=== PATIENT | male | born 1970 | race Hispanic/Latino ===

== ENCOUNTER 2023-05-19 16:59 | Inpatient (IN) | payer OTHER ==
[~2023-05-19] VITALS: Ht 172.7 cm; Wt 91.6 kg
[2023-05-19 17:57] LABS: BASOPHILS # (AUTO) 0.02 K/uL (0.00-0.20); BASOPHILS % (AUTO) 0.4 % (0.0-5.0); EOSINOPHILS # (AUTO) 0.07 K/uL (0.00-0.70); EOSINOPHILS % (AUTO) 1.2 % (0.0-8.0); HEMATOCRIT 43.5 % (42-54); IMMATURE GRANULOCYTE ABSOLUTE 0.01 K/uL (0-1); LYMPHOCYTES # (AUTO) 1.6 K/uL (1.0-4.8); LYMPHOCYTES % (AUTO) 28.4 % (21.0-51.0); MEAN CORPUSCULAR HEMOGLOBIN 30.7 pg (27.0-33.0); MEAN CORPUSCULAR HGB CONC 34.9 g/dL (32.0-36.0); MEAN CORPUSCULAR VOLUME 87.9 fL (79-99); MONOCYTES # (AUTO) 0.5 K/uL (0.1-1.0); MONOCYTES % (AUTO) 8.3 % (3.0-13.0); NEUTROPHILS # (AUTO) 3.5 K/uL (1.8-7.7); NEUTROPHILS % (AUTO) 61.5 % (40.0-77.0); PLATELET COUNT (AUTO) 68 K/uL (130-400); RED BLOOD CELL COUNT(AUTO) 4.95 MIL/uL (4.50-6.20); RED CELL DISTRIBUTION WIDTH 12.7 % (11.0-15.5); WHITE BLOOD COUNT (AUTO) 5.6 K/uL (4.8-10.8)
[2023-05-19 18:05] LABS: CREATININE 0.6 mg/dL (0.5-1.5); POTASSIUM 3.5 mmol/L (3.5-5.1)
[2023-05-19 18:15] LABS: ALBUMIN 3.5 g/dL (3.5-5.0); BILIRUBIN,TOTAL 0.7 mg/dL (0.2-1.0); TOTAL PROTEIN, SERUM 6.8 g/dL (6.0-8.3)
[2023-05-19] MEDS ORDERED: NITROGLYCERIN 1GM OINT 1 INCH/1GM TD ONE (21:30)
[2023-05-19] MEDS ORDERED: ENOXAPARIN SODIUM 100 MG/1 ML SQ ONE (21:30)
[2023-05-19] MEDS ORDERED: ACETAMINOPHEN 325 MG TAB ONE (23:51)
[2023-05-20] MEDS ORDERED: ACETAMINOPHEN 325 MG TAB PO ONE
[2023-05-20] MEDS ORDERED: ACETAMINOPHEN 325 MG TAB PO PRN ×2 (02:00)
[2023-05-20] MEDS: NITROGLYCERIN 1GM OINT 1 INCH/1GM TD SCH ×3 (02:00→18:00)
[2023-05-20] MEDS ORDERED: DEXTROSE 50%-WATER 50 ML DISP.SYRIN IV PRN (02:00)
[2023-05-20] MEDS ORDERED: KCL 20 MEQ ERTAB PO PRN (02:00)
[2023-05-20] MEDS ORDERED: POTASSIUM CHLORIDE 10% ELIXIR 20 MEQ/15 ML UDCUP PO PRN (02:00)
[2023-05-20] MEDS ORDERED: ONDANSETRON 4MG INJ IV PRN (02:00)
[2023-05-20] MEDS ORDERED: POTASSIUM CHLORIDE 20MEQ/100ML 100 ML IV PRN (02:00)
[2023-05-20] MEDS ORDERED: GLUCAGON 1MG KIT 1 MG ML IM PRN (02:00)
[2023-05-20] MEDS ORDERED: METO-391 PO (05:31)
[2023-05-20] MEDS ORDERED: METF-527 PO (05:31)
[2023-05-20] MEDS ORDERED: ATOR-2 PO (05:31)
[2023-05-20] MEDS ORDERED: LISI20TA24 PO (05:31)
[2023-05-20] MEDS: INSULIN HUMULIN R 100 UNIT/ML 3ML SQ SCH ×4 (07:30→21:00)
[2023-05-20 07:43] LABS: BASOPHILS # (AUTO) 0.02 K/uL (0.00-0.20); BASOPHILS % (AUTO) 0.5 % (0.0-5.0); EOSINOPHILS # (AUTO) 0.04 K/uL (0.00-0.70); EOSINOPHILS % (AUTO) 0.9 % (0.0-8.0); HEMATOCRIT 43.6 % (42-54); IMMATURE GRANULOCYTE ABSOLUTE 0.01 K/uL (0-1); LYMPHOCYTES # (AUTO) 1.2 K/uL (1.0-4.8); LYMPHOCYTES % (AUTO) 28.1 % (21.0-51.0); MEAN CORPUSCULAR HEMOGLOBIN 30.9 pg (27.0-33.0); MEAN CORPUSCULAR HGB CONC 34.4 g/dL (32.0-36.0); MEAN CORPUSCULAR VOLUME 89.7 fL (79-99); MONOCYTES # (AUTO) 0.4 K/uL (0.1-1.0); MONOCYTES % (AUTO) 7.9 % (3.0-13.0); NEUTROPHILS # (AUTO) 2.8 K/uL (1.8-7.7); NEUTROPHILS % (AUTO) 62.4 % (40.0-77.0); PLATELET COUNT (AUTO) 59 K/uL (130-400); RED BLOOD CELL COUNT(AUTO) 4.86 MIL/uL (4.50-6.20); RED CELL DISTRIBUTION WIDTH 12.7 % (11.0-15.5); WHITE BLOOD COUNT (AUTO) 4.4 K/uL (4.8-10.8)
[2023-05-20 08:16] LABS: HEMOGLOBIN A1C 6.1 % (4.0-6.0)
[2023-05-20 08:17] LABS: ALBUMIN 3.5 g/dL (3.5-5.0); BILIRUBIN,TOTAL 0.9 mg/dL (0.2-1.0); CREATININE 0.6 mg/dL (0.5-1.5); MAGNESIUM 1.6 mg/dL (1.80-2.40); POTASSIUM 4.6 mmol/L (3.5-5.1); THYROID STIMULATING HORMONE 0.86 uIU/mL (0.36-3.74); TOTAL PROTEIN, SERUM 6.7 g/dL (6.0-8.3)
[2023-05-20] MEDS: FAMOTIDINE 20MG TAB PO SCH ×2 (08:19→21:59)
[2023-05-20] MEDS: METOPROLOL SUCCINATE 50 MG TAB.SR.24H PO SCH ×2 (08:19→21:59)
[2023-05-20 10:00] VITALS: BP 111/68; PULSE 80; RESP 18; O2SAT 98
[2023-05-20 12:00] VITALS: BP 111/68; PULSE 80; RESP 18
[2023-05-20] MEDS: ASPIRIN 81MG CHEW TAB PO SCH (13:30)
[2023-05-20] MEDS: MAGNESIUM 2GM PREMIX 50ML 50 ML IV PRN ×2 (13:31→18:45)
[2023-05-20 16:00] VITALS: BP 133/76; PULSE 81; RESP 18
[2023-05-20] MEDS ORDERED: IOHEXOL-350 75 ML VIAL IV ONE (18:08)
[2023-05-20 19:45] VITALS: O2SAT 98
[2023-05-20 20:00] VITALS: BP 124/82; PULSE 81; RESP 18
[2023-05-20] MEDS: ATORVASTATIN 40 MG TABLET PO SCH (21:59)
[2023-05-21] VITALS: BP 156/86; PULSE 91; RESP 20
[2023-05-21] MEDS: NITROGLYCERIN 1GM OINT 1 INCH/1GM TD SCH ×3 (02:01→19:26)
[2023-05-21 04:00] VITALS: BP 131/75; PULSE 81; RESP 18
[2023-05-21] MEDS: INSULIN HUMULIN R 100 UNIT/ML 3ML SQ SCH ×4 (05:53→21:53)
[2023-05-21 06:08] LABS: BASOPHILS # (AUTO) 0.02 K/uL (0.00-0.20); BASOPHILS % (AUTO) 0.3 % (0.0-5.0); EOSINOPHILS # (AUTO) 0.06 K/uL (0.00-0.70); EOSINOPHILS % (AUTO) 0.9 % (0.0-8.0); HEMATOCRIT 43.8 % (42-54); IMMATURE GRANULOCYTE ABSOLUTE 0.01 K/uL (0-1); LYMPHOCYTES # (AUTO) 1.5 K/uL (1.0-4.8); LYMPHOCYTES % (AUTO) 23.5 % (21.0-51.0); MEAN CORPUSCULAR HEMOGLOBIN 30.9 pg (27.0-33.0); MEAN CORPUSCULAR VOLUME 90.9 fL (79-99); MONOCYTES # (AUTO) 0.6 K/uL (0.1-1.0); NEUTROPHILS # (AUTO) 4.3 K/uL (1.8-7.7); NEUTROPHILS % (AUTO) 66.1 % (40.0-77.0); PLATELET COUNT (AUTO) 74 K/uL (130-400); RED BLOOD CELL COUNT(AUTO) 4.82 MIL/uL (4.50-6.20); RED CELL DISTRIBUTION WIDTH 12.7 % (11.0-15.5); WHITE BLOOD COUNT (AUTO) 6.5 K/uL (4.8-10.8)
[2023-05-21 06:33] LABS: ALBUMIN 3.2 g/dL (3.5-5.0); BILIRUBIN,TOTAL 0.9 mg/dL (0.2-1.0); CREATININE 0.7 mg/dL (0.5-1.5); MAGNESIUM 1.8 mg/dL (1.80-2.40); TOTAL PROTEIN, SERUM 6.4 g/dL (6.0-8.3)
[2023-05-21 08:00] VITALS: BP 123/67; PULSE 74; RESP 18; O2SAT 98
[2023-05-21] MEDS ORDERED: ENOXAPARIN SODIUM 40 MG/0.4 ML SYRINGE SQ SCH (09:00)
[2023-05-21] MEDS: LISINOPRIL 20 MG TABLET PO SCH (09:44)
[2023-05-21] MEDS: FUROSEMIDE 20 MG TABLET PO SCH (09:45)
[2023-05-21] MEDS: FAMOTIDINE 20MG TAB PO SCH ×2 (09:45→21:48)
[2023-05-21] MEDS: METOPROLOL SUCCINATE 50 MG TAB.SR.24H PO SCH ×2 (09:45→21:48)
[2023-05-21] MEDS: MAGNESIUM 2GM PREMIX 50ML 50 ML IV PRN (09:47)
[2023-05-21 12:00] VITALS: BP 129/77; PULSE 81; RESP 20
[2023-05-21] MEDS: ASPIRIN 81MG CHEW TAB PO SCH (12:31)
[2023-05-21 16:00] VITALS: BP 123/75; PULSE 76; RESP 20
[2023-05-21 20:00] VITALS: BP 129/77; PULSE 89; RESP 20
[2023-05-21] MEDS: ATORVASTATIN 40 MG TABLET PO SCH (21:48)
[2023-05-22] VITALS: BP 141/79; PULSE 88; RESP 20
[2023-05-22 04:02] VITALS: BP 136/85; PULSE 90; RESP 18
[2023-05-22] MEDS: INSULIN HUMULIN R 100 UNIT/ML 3ML SQ SCH ×3 (05:39→16:20)
[2023-05-22 07:32] VITALS: BP 109/57; PULSE 66; RESP 18
[2023-05-22 08:00] VITALS: O2SAT 100
[2023-05-22] MEDS: FAMOTIDINE 20MG TAB PO SCH (09:37)
[2023-05-22] MEDS: METOPROLOL SUCCINATE 50 MG TAB.SR.24H PO SCH (09:37)
[2023-05-22] MEDS: LISINOPRIL 20 MG TABLET PO SCH (09:37)
[2023-05-22] MEDS: FUROSEMIDE 20 MG TABLET PO SCH (09:38)
[2023-05-22 12:00] VITALS: BP 131/70; PULSE 78; RESP 18
[2023-05-22] MEDS ORDERED: FURO20TA6 PO (12:17)
[2023-05-22] MEDS ORDERED: METO50TA9 PO (12:17)
[2023-05-22] MEDS ORDERED: ASPI-1005 PO (12:17)
[2023-05-22] MEDS: ASPIRIN 81MG CHEW TAB PO SCH (13:13)
[2023-05-22 16:00] VITALS: BP 122/75; PULSE 70; RESP 18
== END 2023-05-22 17:50 | disposition home or self-care (01) | DRG 303 ==
LOC: EDH 16:59 → EDHIP 17:00 → 3BH 05-20 09:00
PROVIDERS: ADMIT Internal Medicine; ATTEND Internal Medicine
DX: I25.110 Atherosclerotic heart disease of native coronary artery with unstable angina pectoris (principal); D69.6 Thrombocytopenia, unspecified; I50.9 Heart failure, unspecified; I11.0 Hypertensive heart disease with heart failure; E66.01 Morbid (severe) obesity due to excess calories; I25.5 Ischemic cardiomyopathy; K80.20 Calculus of gallbladder without cholecystitis without obstruction; E11.9 Type 2 diabetes mellitus without complications; E78.00 Pure hypercholesterolemia, unspecified; Z95.5 Presence of coronary angioplasty implant and graft; I25.2 Old myocardial infarction; Z86.711 Personal history of pulmonary embolism; Z68.30 Body mass index [BMI] 30.0-30.9, adult; Z79.84 Long term (current) use of oral hypoglycemic drugs
CPT/HCPCS: 36415; 71045; 71275; 80053; 80061; 82948; 83036; 83735; 84443; 84484; 85025; 93005; 93306; 93970; G0378; J1650; J1815; J3475; Q9967

== ENCOUNTER 2023-11-09 22:37 | Emergency (ER) | payer OTHER ==
[~2023-11-09 22:37] MED LIST: ASPI-1005 PO; ATOR-2 PO; FURO20TA6 PO; LISI20TA24 PO; METF-527 PO; METO50TA9 PO
[2023-11-09 23:34] LABS: BASOPHILS # (AUTO) 0.02 K/uL (0.00-0.20); BASOPHILS % (AUTO) 0.3 % (0.0-5.0); EOSINOPHILS # (AUTO) 0.07 K/uL (0.00-0.70); HEMATOCRIT 41.5 % (42-54); IMMATURE GRANULOCYTE ABSOLUTE 0.02 K/uL (0-1); LYMPHOCYTES # (AUTO) 1.9 K/uL (1.0-4.8); LYMPHOCYTES % (AUTO) 28.1 % (21.0-51.0); MEAN CORPUSCULAR HEMOGLOBIN 30.9 pg (27.0-33.0); MEAN CORPUSCULAR HGB CONC 34.5 g/dL (32.0-36.0); MEAN CORPUSCULAR VOLUME 89.6 fL (79-99); MONOCYTES # (AUTO) 0.6 K/uL (0.1-1.0); MONOCYTES % (AUTO) 8.8 % (3.0-13.0); NEUTROPHILS # (AUTO) 4.1 K/uL (1.8-7.7); NEUTROPHILS % (AUTO) 61.5 % (40.0-77.0); PLATELET COUNT (AUTO) 100 K/uL (130-400); RED BLOOD CELL COUNT(AUTO) 4.63 MIL/uL (4.50-6.20); RED CELL DISTRIBUTION WIDTH 13.8 % (11.0-15.5); WHITE BLOOD COUNT (AUTO) 6.7 K/uL (4.8-10.8)
[2023-11-09 23:44] LABS: CARBON DIOXIDE 29 mmol/L (21-32); CHLORIDE 108 mmol/L (101-111); CREATININE 0.7 mg/dL (0.5-1.3); GLOMERULAR FILTR. RATE CALC 110 mL/min (>90); GLUCOSE,RANDOM 115 mg/dL (70-105); POTASSIUM 3.3 mmol/L (3.5-5.1); SODIUM SERUM 146 mmol/L (136-145); UREA NITROGEN, BLOOD 16 mg/dL (7-18)
[2023-11-09 23:51] LABS: APPEARANCE,URINE CLEAR (CLEAR); BILIRUBIN,URINE NEGATIVE (NEGATIVE); COLOR,URINE YELLOW (YELLOW); GLUCOSE, URINE (UA) NEGATIVE (NEGATIVE); KETONES,URINE NEGATIVE (NEGATIVE); LEUKOCYTE ESTERASE ,URINE NEGATIVE Leu/uL (NEGATIVE); NITRATE,URINE NEGATIVE (NEGATIVE); OCCULT BLOOD,URINE NEGATIVE (NEGATIVE); PROTEIN,URINE 50 mg/dL (NEGATIVE); UROBILINOGEN,URINE 3 mg/dL (0.2-1.0)
[2023-11-09 23:51] LABS: ALANINE AMINOTRANSFERASE 34 U/L (12-78); ALBUMIN 3.9 g/dL (3.5-5.0); ALCOHOL, BLOOD < 3 mg/dL (0-10); ASPARTATE AMINOTRANSFERASE 18 U/L (10-37); BILIRUBIN,TOTAL 1.2 mg/dL (0.2-1.0); CREATINE KINASE, TOTAL 85 U/L (21-232); TOTAL PROTEIN, SERUM 7.1 g/dL (6.0-8.3)
[2023-11-09 23:55] LABS: ACETAMINOPHEN < 1 mcg/mL (10-29); SALICYLATE < 2.8 mg/dL (2.8-20.0)
[2023-11-09 23:59] LABS: ADD UA MICROSCOPIC YES
[2023-11-10 00:01] LABS: BACTERIA,URINE FEW /HPF (None Seen); MUCUS,URINE MANY LPF (None Seen); SQUAMOUS EPITHELIAL CELL,UR RARE /HPF (0-2)
[2023-11-10 01:12] LABS: AMPHET/METH SCREEN,URINE NEGATIVE (NEGATIVE); BARBITURATE SCREEN, URINE NEGATIVE (NEGATIVE); BENZODIAZEPINES SCREEN,URINE NEGATIVE (NEGATIVE); CANNABINOID SCREEN,URINE NEGATIVE (NEGATIVE); COCAINE SCREEN,URINE NEGATIVE (NEGATIVE); OPIATE SCREEN,URINE NEGATIVE (NEGATIVE); PHENCYCLIDINE SCREEN,URINE NEGATIVE (NEGATIVE)
[2023-11-10 04:18] VITALS: BP 139/80; PULSE 75; RESP 16; O2SAT 99
[2023-11-10] MEDS ORDERED: AMOX1TAB16 PO (12:37)
== END 2023-11-10 04:42 | disposition home or self-care (01) ==
LOC: EDH 22:37
DX: R45.851 Suicidal ideations (principal); I25.10 Atherosclerotic heart disease of native coronary artery without angina pectoris; E11.9 Type 2 diabetes mellitus without complications; E78.00 Pure hypercholesterolemia, unspecified; Z59.00 Homelessness unspecified; Z79.82 Long term (current) use of aspirin; Z79.899 Other long term (current) drug therapy; Z95.5 Presence of coronary angioplasty implant and graft
CPT/HCPCS: 99283; 82550; 80053; 80305; 85025; 36415; 81001; G0481

== ENCOUNTER 2023-11-10 09:13 | Emergency (ER) | payer OTHER ==
[~2023-11-10] VITALS: Ht 170.2 cm; Wt 81.6 kg
[2023-11-10] MEDS: AMOX/CLAV 875/125MG TAB PO ONE (10:42)
[2023-11-10] MEDS: IBUPROFEN 600 MG TABLET PO ONE (10:42)
[2023-11-10] MEDS: RABIES VACC, HUMAN DIPLOID/PF 2.5 UNIT ML IM SCH (10:43)
[2023-11-10] MEDS ORDERED: AMOX1TAB16 PO (12:37)
[2023-11-10 13:17] VITALS: BP 105/70; PULSE 82; RESP 17; O2SAT 99
== END 2023-11-10 13:18 | disposition home or self-care (01) ==
LOC: EDH 09:13
DX: S70.311A Abrasion, right thigh, initial encounter (principal); I11.0 Hypertensive heart disease with heart failure; I50.9 Heart failure, unspecified; E11.9 Type 2 diabetes mellitus without complications; Z79.82 Long term (current) use of aspirin; Z79.84 Long term (current) use of oral hypoglycemic drugs; Z79.899 Other long term (current) drug therapy; Z90.49 Acquired absence of other specified parts of digestive tract; Z98.890 Other specified postprocedural states; W54.0XXA Bitten by dog, initial encounter; Y93.01 Activity, walking, marching and hiking; Y92.89 Other specified places as the place of occurrence of the external cause; Y99.8 Other external cause status
CPT/HCPCS: 90471; 90675

== ENCOUNTER 2023-11-17 09:01 | Emergency (ER) | payer OTHER ==
[~2023-11-17] VITALS: Ht 170.2 cm; Wt 81.6 kg
[~2023-11-17 09:01] MED LIST changes: +AMOX1TAB16 PO
[2023-11-17 09:42] LABS: BASOPHILS # (AUTO) 0.02 K/uL (0.00-0.20); BASOPHILS % (AUTO) 0.4 % (0.0-5.0); EOSINOPHILS # (AUTO) 0.06 K/uL (0.00-0.70); EOSINOPHILS % (AUTO) 1.3 % (0.0-8.0); HEMATOCRIT 36.5 % (42-54); IMMATURE GRANULOCYTE ABSOLUTE 0.01 K/uL (0-1); LYMPHOCYTES # (AUTO) 1.1 K/uL (1.0-4.8); LYMPHOCYTES % (AUTO) 23.4 % (21.0-51.0); MEAN CORPUSCULAR HEMOGLOBIN 30.9 pg (27.0-33.0); MEAN CORPUSCULAR HGB CONC 34.2 g/dL (32.0-36.0); MEAN CORPUSCULAR VOLUME 90.1 fL (79-99); MONOCYTES # (AUTO) 0.4 K/uL (0.1-1.0); MONOCYTES % (AUTO) 8.5 % (3.0-13.0); NEUTROPHILS % (AUTO) 66.2 % (40.0-77.0); PLATELET COUNT (AUTO) 68 K/uL (130-400); RED BLOOD CELL COUNT(AUTO) 4.05 MIL/uL (4.50-6.20); RED CELL DISTRIBUTION WIDTH 13.5 % (11.0-15.5); WHITE BLOOD COUNT (AUTO) 4.5 K/uL (4.8-10.8)
[2023-11-17 09:58] LABS: CREATININE 0.6 mg/dL (0.5-1.3); POTASSIUM 3.5 mmol/L (3.5-5.1)
[2023-11-17 10:02] VITALS: BP 125/56; PULSE 61; RESP 20; O2SAT 99
[2023-11-17 10:02] LABS: AMPHET/METH SCREEN,URINE NEGATIVE (NEGATIVE); BARBITURATE SCREEN, URINE NEGATIVE (NEGATIVE); BENZODIAZEPINES SCREEN,URINE NEGATIVE (NEGATIVE); CANNABINOID SCREEN,URINE NEGATIVE (NEGATIVE); COCAINE SCREEN,URINE NEGATIVE (NEGATIVE); OPIATE SCREEN,URINE NEGATIVE (NEGATIVE); PHENCYCLIDINE SCREEN,URINE NEGATIVE (NEGATIVE)
[2023-11-17 10:05] LABS: ALBUMIN 3.2 g/dL (3.5-5.0); BILIRUBIN,TOTAL 0.5 mg/dL (0.2-1.0); TOTAL PROTEIN, SERUM 6.1 g/dL (6.0-8.3)
== END 2023-11-17 11:27 | disposition home or self-care (01) ==
LOC: EDH 09:01
DX: R07.89 Other chest pain (principal); E11.9 Type 2 diabetes mellitus without complications; E78.00 Pure hypercholesterolemia, unspecified; I11.0 Hypertensive heart disease with heart failure; I50.9 Heart failure, unspecified; Z79.82 Long term (current) use of aspirin; Z79.899 Other long term (current) drug therapy; Z95.5 Presence of coronary angioplasty implant and graft
CPT/HCPCS: 36415; 71045; 80053; 80305; 82550; 84484; 85025; 93005

== ENCOUNTER 2024-04-14 07:34 | Emergency (ER) | payer SELFPAY ==
[~2024-04-14] VITALS: Ht 172.7 cm; Wt 87.1 kg
[2024-04-14] MEDS: 0.9%NACL 1000ML 1,000 ML IV ONE ×2 (07:51→10:43)
[2024-04-14 07:57] LABS: BASOPHILS # (AUTO) 0.01 K/uL (0.00-0.20); BASOPHILS % (AUTO) 0.2 % (0.0-5.0); EOSINOPHILS # (AUTO) 0.06 K/uL (0.00-0.70); EOSINOPHILS % (AUTO) 1.1 % (0.0-8.0); HEMATOCRIT 39.2 % (42-54); IMMATURE GRANULOCYTE ABSOLUTE 0.03 K/uL (0-1); LYMPHOCYTES # (AUTO) 1.1 K/uL (1.0-4.8); LYMPHOCYTES % (AUTO) 21.1 % (21.0-51.0); MEAN CORPUSCULAR HEMOGLOBIN 31.1 pg (27.0-33.0); MEAN CORPUSCULAR HGB CONC 34.4 g/dL (32.0-36.0); MEAN CORPUSCULAR VOLUME 90.3 fL (79-99); MONOCYTES # (AUTO) 0.4 K/uL (0.1-1.0); MONOCYTES % (AUTO) 7.3 % (3.0-13.0); NEUTROPHILS # (AUTO) 3.7 K/uL (1.8-7.7); NEUTROPHILS % (AUTO) 69.7 % (40.0-77.0); PLATELET COUNT (AUTO) 74 K/uL (130-400); RED BLOOD CELL COUNT(AUTO) 4.34 MIL/uL (4.50-6.20); RED CELL DISTRIBUTION WIDTH 13.9 % (11.0-15.5); WHITE BLOOD COUNT (AUTO) 5.4 K/uL (4.8-10.8)
[2024-04-14 08:08] LABS: CREATININE 0.8 mg/dL (0.5-1.3); POTASSIUM 4.7 mmol/L (3.5-5.1)
[2024-04-14 08:51] LABS: APPEARANCE,URINE CLEAR (CLEAR); BILIRUBIN,URINE NEGATIVE (NEGATIVE); COLOR,URINE COLORLESS (YELLOW); GLUCOSE, URINE (UA) 30 mg/dL (NEGATIVE); KETONES,URINE NEGATIVE (NEGATIVE); LEUKOCYTE ESTERASE ,URINE NEGATIVE Leu/uL (NEGATIVE); NITRATE,URINE NEGATIVE (NEGATIVE); OCCULT BLOOD,URINE NEGATIVE (NEGATIVE); PROTEIN,URINE NEGATIVE (NEGATIVE); UROBILINOGEN,URINE 0.2 mg/dL (0.2-1.0)
[2024-04-14 08:52] LABS: ADD UA MICROSCOPIC YES
[2024-04-14 08:54] LABS: MUCUS,URINE RARE LPF (None Seen); RBC,URINE 0-1 /HPF (0-1); SQUAMOUS EPITHELIAL CELL,UR RARE /HPF (0-2); WBC,URINE 0-1 /HPF (0-1)
[2024-04-14] MEDS: acetaMINOPHEN 500 MG TABLET PO ONE (09:36)
[2024-04-14] MEDS: FAMOTIDINE 20MG VIAL IV ONE (10:10)
[2024-04-14 12:09] VITALS: BP 131/67; PULSE 56; RESP 15; TEMP 97.9; O2SAT 99
== END 2024-04-14 12:19 | disposition home or self-care (01) ==
LOC: EDH 07:34
DX: R07.9 Chest pain, unspecified (principal); R51.9 Headache, unspecified; H92.02 Otalgia, left ear; R42 Dizziness and giddiness; R20.0 Anesthesia of skin; I25.10 Atherosclerotic heart disease of native coronary artery without angina pectoris; E11.9 Type 2 diabetes mellitus without complications; E78.00 Pure hypercholesterolemia, unspecified; I11.0 Hypertensive heart disease with heart failure; I50.9 Heart failure, unspecified; Z95.5 Presence of coronary angioplasty implant and graft; Z79.899 Other long term (current) drug therapy; Z79.82 Long term (current) use of aspirin; Z79.84 Long term (current) use of oral hypoglycemic drugs
CPT/HCPCS: 99285; 96374; 96361; 71045; 84484; 80048; 83880; 85025; 81001; 36415; 93005; J3490; J7030 ×2

== ENCOUNTER 2024-06-01 09:06 | Inpatient (IN) | payer SELFPAY ==
[~2024-06-01] VITALS: Ht 175.3 cm; Wt 87.1 kg
--- NOTE | 2024-06-01 09:16 | ERN ---
General Chief Complaint: Chest Pain Stated Complaint: CP Time Seen by MD: 09:08 Source: patient History of Present Illness Initial Comments Patient is a 53-year-old gentleman coming in to be evaluated for chest pressure. Patient states that the chest pressure began last night. Patient states he has a history of cardiac stent placement. He states that the pressure began last night improved and then again resurface this morning. Allergies: Coded Allergies: No Known Allergies (Unverified Allergy, Unknown, 05/19/23) Home Meds Active Scripts Amoxicillin/Potassium Clav (Amox Tr-K Clv 875-125 mg Tab) 875 Mg-125 Mg Tablet, 1 EACH PO BID for 7 Days, #14 TAB Prov:SONIA SCANLON [facility] 11/10/23 Metoprolol Succinate (Toprol Xl) 50 Mg Tab.er.24h, 50 MG PO BID, #30 TAB Prov:[facility] L[facility] 05/22/23 Furosemide (Lasix 20Mg Tab) 20 Mg Tablet, 20 MG PO DAILY, #30 TAB Prov:[facility] 05/22/23 Aspirin (ASPIRIN 81MG CHEW TAB) 81 Mg Tab.chew, 81 MG PO Q24H, #30 TAB.CHEW Prov:[facility] L[facility] 05/22/23 Reported Medications Lisinopril (Lisinopril) 20 Mg Tablet, 20 MG PO DAILY, TAB 05/20/23 Metformin HCl (Metformin HCl ER) 1,000 Mg Tab.er.24, 1000 MG PO HS 05/20/23 Atorvastatin Calcium (Atorvastatin Calcium) 80 Mg Tablet, 80 MG PO HS, TAB 05/20/23 Past Medical History Past Medical History: CAD, Diabetes-Type II, High Cholesterol, Hypertension Past Surgical History: Other Surgical History Other: CARDIAC STENTS Family History Family History: Negative Social History Social History: Negative, Lives with family ROS Dictation CONSTITUTIONAL: No chills, no fever, no weakness, no diaphoresis, no malaise. HEAD/FACE: No signs of trauma. EENT: No eye pain, no blurred vision, no tearing, no double vision, no ear pain, no ear discharge, no nose pain, no nasal congestion, no throat pain, no throat swelling, no mouth pain. RESPIRATORY: No cough, no orthopnea, no SOB, no stridor, no wheezing. CARDIOVASCULAR: No chest pain, no edema, no palpitations, no syncope. GASTROINTESTINAL/ABDOMINAL: No abdominal pain, no constipation, no diarrhea, no nausea, no vomiting. GENITOURINARY: No abnormal discharge, no dysuria, no frequent urination, no hematuria. No complaints of pain in the genitals. MUSCULOSKELETAL: No back pain, no gout, no joint pain, no joint swelling, no muscle pain, no muscle stiffness, no neck pain. INTEGUMENTARY: No change in color, no change in hair/nails, no dryness, no lesion, no lumps, no rash. NEUROLOGICAL/PSYCH: No anxiety, not depressed, no emotional problem, no headache, no numbness, no pre-existing deficit, no history of seizures, no tremors, no weakness. HEMATOLOGIC/LYMPHATIC: Not anemic, no history of blood clots, no apparent bleeding, no bruising, glands not swollen. All Systems Negative, Except as Noted. Physical Exam Physical Exam Dictation VITAL SIGNS: Reviewed. GENERAL APPEARANCE: Alert, oriented x3, no acute distress, obese. HEAD AND FACE: Non-traumatic. EYES: PERRL, pink conjunctivas, eyelid no trauma, anterior chamber clear. EARS: Pinnas intact and no signs of trauma or erythema. Ear canals clear and no discharge. TMs no erythema. NOSE: No discharge, no bleeding. OROPHARYNX: Mouth normal, teeth no caries, tongue pink. Pharynx clear, no erythema. Tonsils no exudates, no abscesses noted. Mucous membrane moist. NECK: Supple, non-tender, no thyromegaly, no masses, no JVD, no bruits. BREAST: Deferred. CHEST: No tenderness, no crepitus, no paradoxical movement, no retractions. LUNGS: Clear, well-ventilated, symmetric, no rales, no wheezing, no rhonchi, no stridor, good breath sounds bilaterally. HEART: Regular rate, regular rhythm, no murmur, no gallops. VASCULAR: No peripheral edema. ABDOMEN: Soft, positive bowel sounds, nondistended, no guarding, nontender, no rebound, no masses no hepatomegaly, no splenomegaly, no Cabrera's sign, no hernias. RECTAL: Deferred. GENITAL: Deferred. NEUROLOGICAL: Normal speech, gross motor function intact, gross sensory function intact. MUSCULOSKELETAL: Neck nontender, full range of motion, back nontender, full range of motion. EXTREMITIES: Nontender, full range of motion. SKIN: Color pink, dry, no turgor, no rash, no lacerations, no abrasions, no contusions. LYMPHATICS: Deferred. Results Laboratory and Microbiology Lab and Micro Result Laboratory Tests Test 06/01/24 09:17 06/01/24 11:06 06/01/24 11:26 White Blood Count 4.8 K/uL (4.8-10.8) Red Blood Count 4.07 MIL/uL (4.50-6.20) L Hemoglobin 12.6 g/dL (14.0-18.0) L Hematocrit 38.1 % (42-54) L Mean Corpuscular Volume 93.6 fL (79-99) Mean Corpuscular Hemoglobin 31.0 pg (27.0-33.0) Mean Corpuscular Hemoglobin Concent 33.1 g/dL (32.0-36.0) Red Cell Distribution Width 13.6 % (11.0-15.5) Platelet Count 62 K/uL (130-400) L Mean Platelet Volume 13.6 fL (7.5-10.5) H Immature Granulocyte % (Auto) 0.2 % (0-1) Neutrophils (%) (Auto) 69.4 % (40.0-77.0) Lymphocytes (%) (Auto) 19.7 % (21.0-51.0) L Monocytes (%) (Auto) 9.3 % (3.0-13.0) Eosinophils (%) (Auto) 1.2 % (0.0-8.0) Basophils (%) (Auto) 0.2 % (0.0-5.0) Neutrophils # (Auto) 3.3 K/uL (1.8-7.7) Lymphocytes # (Auto) 1.0 K/uL (1.0-4.8) Monocytes # (Auto) 0.5 K/uL (0.1-1.0) Eosinophils # (Auto) 0.06 K/uL (0.00-0.70) Basophils # (Auto) 0.01 K/uL (0.00-0.20) Absolute Immature Granulocyte (auto 0.01 K/uL (0-1) Nucleated Red Blood Cells 0.0 % (0.0-0.19) Platelet Morphology Comment See comments Prothrombin Time 12.1 SEC (9.6-11.6) H Prothromb Time International Ratio 1.13 (0.85-1.15) Activated Partial Thromboplast Time 28.2 SEC (26.3-35.5) Sodium Level 143 mmol/L (136-145) Potassium Level 3.7 mmol/L (3.5-5.1) Chloride Level 106 mmol/L (101-111) Carbon Dioxide Level 33 mmol/L (21-32) H Blood Urea Nitrogen 14 mg/dL (7-18) Creatinine 0.8 mg/dL (0.5-1.3) Glomerular Filtration Rate Calc 105 mL/min (>90) Random Glucose 162 mg/dL (70-105) H Total Calcium 9.1 mg/dL (8.5-10.1) Magnesium Level 1.80 mg/dL (1.80-2.40) Total Creatine Kinase 132 U/L (21-232) # Troponin I High Sensitivity 6 ng/L (4-75) 6 ng/L (4-75) B-Type Natriuretic Peptide 91 pg/mL (0-100) Triglycerides Level 65 mg/dL (30-200) Cholesterol Level 89 mg/dL (<200) # LDL Cholesterol 51 mg/dL (0-99) HDL Cholesterol 28 mg/dL (29-71) L Urine Color LIGHT-YELLOW (YELLOW) Urine Appearance CLEAR (CLEAR) Urine pH 5.5 (5.0-8.0) Urine Specific [place] 1.013 (1.001-1.031) Urine Protein NEGATIVE mg/dL (NEGATIVE) Urine Glucose (UA) NEGATIVE mg/dL (NEGATIVE) Urine Ketones NEGATIVE mg/dL (NEGATIVE) Urine Occult Blood LARGE (NEGATIVE) H Urine Nitrate NEGATIVE (NEGATIVE) Urine Bilirubin NEGATIVE mg/dL (NEGATIVE) Urine Urobilinogen 0.2 mg/dL (0.2-1.0) Urine Leukocyte Esterase NEGATIVE Jonnathan/uL Labs Reviewed?: Yes EKG/XRAY/US/CT/MRI EKG Comment 06/01/2024 time 9:05 a.m. Ventricular rate 57 Sinus rhythm PA [address] wave elevation or depression X-RAY Comment Chest [id number] congestion MDM MDM: Differential diagnosis: Chest pain, history of CAD, Rationale: Tests considered and ordered secondary to shared decision making include: labs, ECG and radiology Previous outside records reviewed: Old ER visits. Risk of complication and/or morbidity or mortality of patient management: None Medications-Per medication reconciliation Need for hospitalization: Patient does meet criteria for hospitalization. Need for emergency major/minor surgery: No There are no social concerns with this patient. Prescription drug management Prescriptions will include symptomatic care Patient's prior external medical records from other ER visits were reviewed by me as indicated. Prior testing and results from previous visits were reviewed. Prior tests were taken into account with medical decision making and resource utilization, independent historian/historians were used to obtain complete medical history. I independently interpreted the test that were performed, results were reviewed by me and considered findings on radiology if ordered. Medical management and examination interpretation discussions were had by me with other qualified healthcare professionals as indicated for the patient's care. Patient is a 53-year-old male coming in to be evaluated for chest pain. During ER visit patient has had episodes of chest pain high he does have a high heart score patient received sublingual nitro improved with the chest discomfort. That has a angina present patient will be admitted under the care of hospitalist group for ongoing management. ED Course Orders Procedure Category Date Status Time Cbc With Differential LAB 06/01/24 Complete 09:13 Prothrombin Time With LAB 06/01/24 Complete INR 09:13 B-Type Natriuretic LAB 06/01/24 Complete Peptide 09:13 Lipid Panel LAB 06/01/24 Complete 09:13 Chest 1vw RAD 06/01/24 Taken 09:13 12 Lead Ekg Tracing- EKG 06/01/24 Complete Technical 09:13 Magnesium LAB 06/01/24 Complete 09:13 Creatine Kinase, Total LAB 06/01/24 Complete 09:13 Troponin I High LAB 06/01/24 Complete Sensitivity 09:13 Urinalysis Profile LAB 06/01/24 In Process 09:13 Partial LAB 06/01/24 Complete Thromboplastin Time 09:13 Basic Metabolic Panel LAB 06/01/24 Complete 09:13 Troponin I High LAB 06/01/24 Complete Sensitivity 11:07 Nitroglycerin 0.4mg PHA 06/01/24 In Process Sl Tab (Nitrostat) 12:30 Current Medications Medications (Trade) Dose Ordered Sig/Faisal Route PRN Reason Start Time Stop Time Status Last Admin Dose Admin Nitroglycerin (Nitrostat) 0.4 mg AD PRN SL CHEST PAIN 06/01/24 12:30 12/20/24 12:29 06/01/24 12:13 Vital Signs Date Time Temp Pulse Resp B/P (MAP) Pulse Ox O2 Delivery O2 Flow Rate FiO2 06/01/24 12:33 98.8 59 20 131/70 99 Room Air* 0 06/01/24 11:54 53 20 142/77 99 Room Air* 0 21 06/01/24 10:40 98.1 62 18 157/83 99 Room Air* 0 21 06/01/24 09:20 98.8 59 20 124/72 99 Room Air* 0 21 06/01/24 09:11 98.8 75 16 120/66 97 Room Air* 0 06/01/24 09:07 98.8 75 16 120/66 97 Room Air HEART Score Response (Comments) Value History: High suspicion (+2) 2 EKG: Repolarization changes 1 Age: 45-65yrs (+1) 1 Risk Factors: 3+ risk factors (+2) 2 Initial Troponin: 1-3x Normal Limit (+1) 1 HEART Score Risk: Low Risk for MACE (1-3) Total 7 DX & DISP Disposition: Inpatient Decision to Admit Time: 12:38 Departure Impression: Primary Impression: Chest pain Additional Impression: CAD (coronary artery disease) Condition: Stable Referrals: DEB APONTE (PCP) Time of Disposition: 12:37 FERMIN JAMES MD Jun 01, 2024 09:16
[2024-06-01 09:28] LABS: BASOPHILS # (AUTO) 0.01 K/uL (0.00-0.20); BASOPHILS % (AUTO) 0.2 % (0.0-5.0); EOSINOPHILS # (AUTO) 0.06 K/uL (0.00-0.70); EOSINOPHILS % (AUTO) 1.2 % (0.0-8.0); HEMATOCRIT 38.1 % (42-54); IMMATURE GRANULOCYTE ABSOLUTE 0.01 K/uL (0-1); LYMPHOCYTES % (AUTO) 19.7 % (21.0-51.0); MEAN CORPUSCULAR HGB CONC 33.1 g/dL (32.0-36.0); MEAN CORPUSCULAR VOLUME 93.6 fL (79-99); MONOCYTES # (AUTO) 0.5 K/uL (0.1-1.0); MONOCYTES % (AUTO) 9.3 % (3.0-13.0); NEUTROPHILS # (AUTO) 3.3 K/uL (1.8-7.7); NEUTROPHILS % (AUTO) 69.4 % (40.0-77.0); PLATELET COUNT (AUTO) 62 K/uL (130-400); RED BLOOD CELL COUNT(AUTO) 4.07 MIL/uL (4.50-6.20); RED CELL DISTRIBUTION WIDTH 13.6 % (11.0-15.5); WHITE BLOOD COUNT (AUTO) 4.8 K/uL (4.8-10.8)
--- NOTE | 2024-06-01 09:31 | EKG ---
[facility] Test Date: 2024-06-01 Test Time: 09:05:55 Pat Name: JUNE TAYLOR Department: ED Room: 325 Gender: M Machine Spreader: [id number] Requested By: FERMIN JAMES Order Number: [id number] Reading MD: Luba Cote Measurements Intervals [place] Rate: 57 P: 41 MT: 151 QRS: 29 QRSD: 112 T: 49 QT: 426 QTc: 415 Interpretive Statements Sinus rhythm Compared to ECG 04/14/2024 07:37:42 Incomplete right bundle-branch block no longer present Electronically Signed On 06-02-2024 17:34:44 EMPLOYMENT OFFICE CLERK by Luba Cote Please click the below link to view image of tracing.
[2024-06-01 09:36] LABS: INR 1.13 (0.85-1.15); PROTHROMBIN TIME 12.1 SEC (9.6-11.6)
[2024-06-01 09:37] LABS: PARTIAL THROMBOPLASTIN TIME 28.2 SEC (26.3-35.5)
[2024-06-01 09:42] LABS: CREATININE 0.8 mg/dL (0.5-1.3); POTASSIUM 3.7 mmol/L (3.5-5.1)
[2024-06-01 09:51] LABS: MAGNESIUM 1.8 mg/dL (1.80-2.40)
[2024-06-01 10:05] LABS: B-TYPE NATRIURETIC PEPTIDE 91 pg/mL (0-100)
[2024-06-01 11:48] LABS: APPEARANCE,URINE CLEAR (CLEAR); BILIRUBIN,URINE NEGATIVE (NEGATIVE); COLOR,URINE LIGHT-YELLOW (YELLOW); GLUCOSE, URINE (UA) NEGATIVE (NEGATIVE); KETONES,URINE NEGATIVE (NEGATIVE); LEUKOCYTE ESTERASE ,URINE NEGATIVE Leu/uL (NEGATIVE); NITRATE,URINE NEGATIVE (NEGATIVE); OCCULT BLOOD,URINE LARGE (NEGATIVE); PH,URINE 5.5 (5.0-8.0); PROTEIN,URINE NEGATIVE (NEGATIVE); UROBILINOGEN,URINE 0.2 mg/dL (0.2-1.0)
[2024-06-01] MEDS: NITROGLYCERIN 0.4 MG SL TAB SL PRN (12:13)
[2024-06-01 12:30] LABS: ADD UA MICROSCOPIC YES
[2024-06-01 13:11] LABS: BACTERIA,URINE RARE /HPF (None Seen); MUCUS,URINE RARE LPF (None Seen); SQUAMOUS EPITHELIAL CELL,UR RARE /HPF (0-2)
--- NOTE | 2024-06-01 13:21 | HP ---
[facility] HISTORY AND PHYSICAL Date of Service: Jun 01, 2024 Time of Service: 13:21 HISTORY OF PRESENT ILLNESS: Date Of service: 06/01/2024 This is a 53-year-old male with past coronary artery disease status post stent placement, history of heart failure, hyperlipidemia who presented to the hospital secondary to chest pain. Patient states for the past 2-3 days he has been having midsternal/epigastric chest pain which got worse today in the morning. Pain is located in the midsternal area/epigastric and would radiate towards his upper chest and lower portions of his chest bilaterally. He started noticing the pain in the morning today and pain would happen intermittently and would come and go. He had associated headache with the pain. He denied any nausea, vomiting, diaphoresis, paresthesias. He described the pain as pressure in nature. Patient states around August 01, 2023 he underwent stent placement in [facility] by Dr. Carrizales. He did not follow up with the ethical hacker after discharge and currently does not see anyone as outpatient. He currently lives in a longterm and is unable to recall the medications he takes at home. He had another stent placed around 1-2 years ago in [place]. He has also had history of atrial flutter and had undergone a procedure previously. He denied any fever, chills, cough, recent falls, lower or upper extremity weakness. Additionally he states around two weeks ago he fell down while using the stairs. He did not hit his head but states he has been issue with his balance. His pain improved after patient received nitroglycerin but pain was still 6/10 when seen at bedside. Secondary to non improving pain patient thereafter came to the ED for further evaluation. Labs in the ED were notable for white count of 4.8, hemoglobin was 12.6, [place] [address], sodium was 143, potassium was 3.7, creatinine was 0.8, blood glucose was 162 Chest x-ray did not show any acute infiltrates. In the ED the patient received nitroglycerin which improved his chest pain. REVIEW OF SYSTEMS CONSTITUTIONAL: Denies fevers, chills, or night sweats. No unintentional weight loss reported. NEUROLOGICAL: Denies headache, amaurosis fugax, motor weakness, sensory deficit, vertigo/spinning sensation, gait abnormalities, or tremors. Positive for headache ENT: No hearing loss, otalgia, otorrhea, rhinitis, rhinorrhea, hoarseness, or sore throat. CARDIOVASCULAR: Positive for chest pain. Denied any dyspnea on exertion, orthopnea, PND, palpitations PULMONARY: Denies any shortness of breath, cough, phlegm/sputum, hemoptysis, pleuritic chest pain. SLEEP: Denies morning headaches, daytime somnolence or napping. Denies difficulty falling asleep, staying asleep, waking from sleep. Denies knowledge of snoring. GASTROINTESTINAL: Denies any type of dysphagia to either liquids or solids. Denies nausea, vomiting, pyrosis, early satiety, abdominal pain, diarrhea, constipation, or changes in stool consistency or caliber. Denies coffee-ground emesis, hematemesis, hematochezia, or melanotic stools. GENITOURINARY: Denies frequency, urgency, nocturia, hematuria or incontinence (Storage/Irritative symptoms.) Low urinary stream, straining to void, urinary intermittency or hesitancy, splitting of the voiding stream, terminal dribbling. ENDOCRINOLOGIC: Denies polyuria, polydipsia, polyphagia or heat/cold intolerances. HEMATOLOGIC: Denies thrombophilia/previous clots, or coagulopathy/bleeding disorders. ONCOLOGIC: Denies personal history of malignancy. DERMATOLOGIC: Denies rashes or pruritus. PSYCHIATRIC: Denies any suicidal or homicidal ideation. Denies hallucinations. PAST MEDICAL HISTORY: History of CAD status post stent placement, heart failure, hyperlipidemia, atrial flutter PAST SURGICAL HISTORY: History of heart catheterization PAST SOCIAL HISTORY: Denied smoking, alcohol, drug use. Patient currently resides in a longterm. FAMILY HISTORY: Denied any pertinent family history Coded Allergies: No Known Allergies (Unverified Allergy, Unknown, 05/19/23) PHYSICAL EXAM GENERAL APPEARANCE: The patient is awake, alert, and oriented, in no acute cardiopulmonary distress. NEUROLOGICAL: Cranial nerves II-XII grossly intact. Motor is 5/5 in bilateral upper and lower extremities proximal to distal. No sensory deficits. HEENT: Face is symmetric. Pupils are equal and reactive. Extraocular movements are intact. NECK: Supple. No JVD. No thyromegaly. No submental, submandibular, pre- /postauricular, occipital or supraclavicular lymphadenopathy. CHEST: Normal chest expansion. No Telemetry. LUNGS: Absence of any rales, rhonchi or any wheezing. CARDIOVASCULAR: Regular. S1 and S2 normal. No appreciable rubs, murmurs or gallops. ABDOMEN: Soft, nontender, and nondistended. There is no rebound, voluntary guarding, or rigidity. : Deferred. No King. EXTREMITIES: Non-edematous and not cyanotic. No clubbing. Good capillary refill. SKIN: No skin breakdown. Vital Sign (Last 24 Hours) 06/01/24 13:19 Temp 98.8 Pulse 58 Resp 18 B/P (MAP) 146/70 Pulse Ox 99 O2 Delivery Room Air* O2 Flow Rate 0 FiO2 21 LABS: Laboratory: Test 06/01/24 11:26 06/01/24 11:06 06/01/24 09:17 Range/Units Troponin I High Sensitivity 6 4-75 ng/L Urine Color LIGHT-YELLOW YELLOW Urine Appearance CLEAR CLEAR Urine pH 5.5 5.0-8.0 Urine Specific [place] 1.013 1.001-1.031 Urine Protein NEGATIVE NEGATIVE mg/dL Urine Glucose (UA) NEGATIVE NEGATIVE mg/dL Urine Ketones NEGATIVE NEGATIVE mg/dL Urine Occult Blood LARGE H NEGATIVE Urine Nitrate NEGATIVE NEGATIVE Urine Bilirubin NEGATIVE NEGATIVE mg/dL Urine Urobilinogen 0.2 0.2-1.0 mg/dL Urine Leukocyte Esterase NEGATIVE NEGATIVE Jonnathan/uL Urine RBC 6-10 H 0-1 /HPF Urine WBC 2-5 H 0-1 /HPF Urine Squamous Epithelial Cells RARE 0-2 /HPF Urine Bacteria RARE None Seen /HPF Urine Hyaline Casts 2-5 H 0-1 /LPF /LPF White Blood Count 4.8 4.8-10.8 K/uL Red Blood Count 4.07 L 4.50-6.20 MIL/uL Hemoglobin 12.6 L 14.0-18.0 g/dL Hematocrit 38.1 L 42-54 % Mean Corpuscular Volume 93.6 79-99 fL Mean Corpuscular Hemoglobin 31.0 27.0-33.0 pg Mean Corpuscular Hemoglobin Concent 33.1 32.0-36.0 g/dL Red Cell Distribution Width 13.6 11.0-15.5 % Platelet Count 62 L 130-400 K/uL Mean Platelet Volume 13.6 H 7.5-10.5 fL Immature Granulocyte % (Auto) 0.2 0-1 % Neutrophils (%) (Auto) 69.4 40.0-77.0 % Lymphocytes (%) (Auto) 19.7 L 21.0-51.0 % Monocytes (%) (Auto) 9.3 3.0-13.0 % Eosinophils (%) (Auto) 1.2 0.0-8.0 % Basophils (%) (Auto) 0.2 0.0-5.0 % Neutrophils # (Auto) 3.3 1.8-7.7 K/uL Lymphocytes # (Auto) 1.0 1.0-4.8 K/uL Monocytes # (Auto) 0.5 0.1-1.0 K/uL Eosinophils # (Auto) 0.06 0.00-0.70 K/uL Basophils # (Auto) 0.01 0.00-0.20 K/uL Absolute Immature Granulocyte (auto 0.01 0-1 K/uL Nucleated Red Blood Cells 0.0 0.0-0.19 % Platelet Morphology Comment See comments Prothrombin Time 12.1 H 9.6-11.6 SEC Prothromb Time International Ratio 1.13 0.85-1.15 Activated Partial Thromboplast Time 28.2 26.3-35.5 SEC Sodium Level 143 136-145 mmol/L Potassium Level 3.7 3.5-5.1 mmol/L Chloride Level 106 101-111 mmol/L Carbon Dioxide Level 33 H 21-32 mmol/L Blood Urea Nitrogen 14 7-18 mg/dL Creatinine 0.8 0.5-1.3 mg/dL Glomerular Filtration Rate Calc 105 >90 mL/min Random Glucose 162 H 70-105 mg/dL Total Calcium 9.1 8.5-10.1 mg/dL Magnesium Level 1.80 1.80-2.40 mg/dL Total Creatine Kinase 132 # 21-232 U/L B-Type Natriuretic Peptide 91 0-100 pg/mL Triglycerides Level 65 30-200 mg/dL Cholesterol Level 89 # <200 mg/dL LDL Cholesterol 51 0-99 mg/dL HDL Cholesterol 28 L 29-71 mg/dL Current Medications Medications (Trade) Dose Ordered Sig/Faisal Route PRN Reason Start Time Stop Time Status Last Admin Dose Admin Nitroglycerin (Nitrostat) 0.4 mg AD PRN SL CHEST PAIN 06/01/24 12:30 07/01/24 12:29 06/01/24 12:13 0.4 MG DIAGNOSTICS / RADIOLOGY: [ ] ASSESSMENT: Chest pain ACS rule out POA History of CAD status post stent placement History of atrial flutter History of hypertension History of hyperlipidemia Thrombocytopenia Headache PLAN: - patient to be admitted to [facility] with telemetry. - reference to chest pain. We will trend troponins q.6 hours. Also obtain echocardiogram. Secondary to patient's cardiac history and risk factors we will request consultation with Cardiology. - in reference to thrombocytopenia. We will check a peripheral smear obtain liver ultrasound to rule out cirrhosis. We will request consultation with Hematology. -check TSH, A1c. -obtain home medications which will be reconciled once available -obtain a CT head -further orders per hospitalization course. Advanced Care Planning Which of the following were discussed: Hospice care: Yes __ No _x_ Therapeutic options: Yes __ No __ Advance directives: Yes __ No __ Other discussions: pt is full code Discussed with who?: patient (Patient, family or surrogates) Voluntary nature of this service was explained to the patient? Yes _x_ No __ Amount of time spent: 25 minutes NYDIA Gonzales MD, MD Jun 01, 2024 13:21
[2024-06-01] MEDS: morPHINE 2 MG SYG IVP PRN (13:29)
[2024-06-01] MEDS ORDERED: hydrALAZine 20MG/ML VIAL IV PRN (13:30)
--- NOTE | 2024-06-01 13:30 | NUR ---
PATIENT DOES NOT RECALL MEDICATIONS HE TAKES REGULARLY AND IS GOING TO ATTEMPT TO CONTACT THE SENIOR LIVING HE LIVES AT TO OBTAIN A LIST OF HIS MEDICATIONS.
[2024-06-01] MEDS: ASPIRIN 81MG CHEW TAB PO ONE (13:33)
[2024-06-01 13:46] LABS: ALBUMIN 3.6 g/dL (3.5-5.0); BILIRUBIN,DIRECT 0.2 mg/dL (0.0-0.3); BILIRUBIN,TOTAL 0.5 mg/dL (0.2-1.0); TOTAL PROTEIN, SERUM 6.4 g/dL (6.0-8.3)
[2024-06-01 13:54] LABS: THYROID STIMULATING HORMONE 0.9 uIU/mL (0.36-3.74)
[2024-06-01 13:56] LABS: HEMOGLOBIN A1C 5.5 % (4.0-6.0)
--- NOTE | 2024-06-01 14:13 | HMCIMG ---
CT HEAD/BRAIN W/O CONTRAST HISTORY: Headaches COMPARISON: None TECHNIQUE: Multiple sequential axial images of the head were obtained from the base of the skull through vertex. Patient was not given contrast through intravenous route. FINDINGS: The ventricles and extraventricular CSF spaces are nondilated for patient's age. There is no midline shift, mass effect or herniation. No acute intracranial bleed is seen. Visualized portion of the paranasal sinuses are grossly within normal limits. IMPRESSION: 1. No acute intracranial bleed is seen. CT was performed with one or more following dose reduction techniques: automated exposure control, adjustment of the mA and kv according to patient's size, or use of a iterative reconstruction technique.
--- NOTE | 2024-06-01 14:30 | NUR ---
PATIENT AT ULTRASOUND AT THIS TIME.
--- NOTE | 2024-06-01 14:58 | NUR ---
PATIENT BACK FROM ULTRASOUND
--- NOTE | 2024-06-01 15:12 | HMCIMG ---
US ABDOMINAL [id number] HISTORY: Cirrhosis COMPARISON: None TECHNIQUE: Right upper quadrant abdominal ultrasound study was performed. FINDINGS: Liver measures 17 cm portal vein is patent. The visualized portion of the pancreas is within normal limits. Liver is echogenic consistent with liver parenchymal disease. Gallstones are seen in the gallbladder. Common duct measures 4 mm. No evidence of gallbladder wall thickening is seen. Right kidney measures 12.8 x 5.7 x 4.6 cm. No hydronephrosis is seen of the right kidney. IMPRESSION: 1. Gallstones. No ductal dilatation is seen. 2. No hydronephrosis is seen.
--- NOTE | 2024-06-01 15:41 | NUR ---
[facility] SANDY ROBERT AT BEDSIDE.
--- NOTE | 2024-06-01 17:13 | NUR ---
ENDORSED CARE TO EMMY RN AT THIS TIME.
--- NOTE | 2024-06-01 18:31 | CONS ---
[facility] CARDIOLOGY CONSULTATION REPORT Cardiology consultation note dictated for Eunice Willis MD Primary race engine builder: Luba Cote MD Date Patient Seen: Jun 01, 2024 Requesting Physician: Tommy Andres MD Reason for Consultation: Chest pain History of Present Illness: This is a 53-year-old male with the past medical history of hypertension, hyperlipidemia, diabetes mellitus type 2, CT in 2017, remote coronary stent in [place], CAD status post LHC on 08/10/2023 with PTCA and stent to the proximal LAD with a (BSC Synergy 3.0 x 16mm [place]), atrial flutter status post DC cardioversion per patient, with possible cardiac ablation, diastolic heart failure, 2D echo on 08/08/2023 with an EF of 60-65%, stage I diastolic dysfunction, and mild MR, CVA in 2004, homeless, fall on his left side on 05/24/2024 with an ED visit to [facility] [place], CT of the chest demonstrated a 7mm right lower lobe nodule, no evidence for left rib fracture, cirrhotic liver, and cholelithiasis who presented to the ED with complaints of chest pain. Cardiology has been consulted for chest pain. Last night after dinner, the patient went for his usual walk when he began to have left-sided chest di scomfort. He described the pain as pressure-like, that radiated to the right chest and was of a moderate intensity that lasted for over one hour and subsided on its own. Accompanying symptoms include headache and shortness of breath. This morning, after being agitated by two members from the [facility] [place] [facility], the chest discomfort began again at 0700, he then decided to seek medical attention. EMS gave him a SL nitroglycerin tab which decreased the pain, but it still continues now at 3pm. Aggravating factors include walking, abdominal and left chest palpitation, and laying flat. Sublingual nitroglycerin and IV morphine has helped decrease the chest discomfort. Troponin level of 6 and 6. EKG demonstrated normal sinus rhythm with a heart rate of 57 bpm, no signs of ischemia present. Palpation of the left upper abdomen and left chest caused intense discomfort to the patient. Abdominal ultrasound demonstrated cholelithiasis and CT of the head was negative for bleed. Past Medical History: As per HPI in summary is below Past Surgical History: Appendectomy Family History: Noncontributory Social History: The patient is currently living in a homeless [place] [facility]. Habits: The patient denies alcohol, tobacco, or illicit drug use. Home Meds: Pending medication reconciliation, bottles are at the [facility] [place] [facility]. Current Meds: Current Medications Medications Dose Ordered Sig/[facility] Start Time Stop Time Status Last Admin Nitroglycerin 0.4 mg AD PRN 06/01/24 12:30 07/01/24 12:29 06/01/24 12:18 Morphine Sulfate 2 mg Q6H PRN 06/01/24 13:30 06/08/24 13:29 06/01/24 13:29 Aspirin 81 mg DAILY 06/02/24 09:00 07/02/24 08:59 Acetaminophen 500 mg Q6H PRN 06/01/24 13:30 07/01/24 13:29 Hydralazine HCl 10 mg Q6H PRN 06/01/24 13:30 07/01/24 13:29 Review of Systems: CONST: [No fever, fatigue, or weight changes.] EYES: [No recent vision problems.] ENT: [No congestion, ear pain, or sore throat.] C/V: [No palpitations, or edema.] Admits to Left chest discomfort with palpation RESP: [No cough, congestion, wheezing or shortness of breath.] GI: [No nausea, vomiting, constipation, or diarrhea.] Admits to left upper abdominal pain with palpation : [No incontinence or dysuria.] SKIN: [No rash.] NEURO: [No headache, focal numbness or weakness, dizziness, or seizures.] PSYCH: [No depression or anxiety.] HEME: [No abnormal bruising or bleeding.] LYMPH: [No swollen glands.] Physical Examination: GENERAL: [No acute distress.] HEAD: [Normal with no signs of head trauma.] EYES: [PERRLA, EOMI, conjunctiva and sclera normal.] ENT: [Hearing grossly intact, normal oropharynx.] NECK: [Supple without JVD. There is no tenderness, lymphadenopathy, or masses. No thyromegaly. Normal carotid upstrokes without bruits.] LUNGS: [Clear breath sounds bilaterally. No wheezes, or rhonchi.] HEART: [Normal rate and rhythm. Normal S1 and S2. 2/3 KWASI heard at the 2nd ICS at the [facility] VASC: [Peripheral pulses +2 bilaterally.] ABD: [Bowel sounds normal. No audible bruits. LUQ pain upon palpation : [Not examined] LYMPH: [No lymphadenopathy noted.] EXT: [No clubbing, cyanosis or edema.] SKIN: [No rashes or lesions noted.] NEURO: [Awake, alert, and oriented x3. No focal sensory or strength deficits noted.] Vital Signs (last 8hr) Date Time Temp Pulse Resp B/P (MAP) Pulse Ox O2 Delivery O2 Flow Rate FiO2 06/01/24 16:49 59 20 161/93 99 Room Air* 0 21 06/01/24 14:58 55 18 142/72 99 Room Air* 0 21 06/01/24 13:19 98.8 58 18 146/70 99 Room Air* 0 21 06/01/24 12:33 98.8 59 20 131/70 99 Room Air* 0 21 06/01/24 11:54 53 20 142/77 99 Room Air* 0 21 06/01/24 10:40 98.1 62 18 157/83 99 Room Air* 0 21 Laboratory: Hematology Labs: Test 06/01/24 09:17 Range/Units White Blood Count 4.8 4.8-10.8 K/uL Red Blood Count 4.07 L 4.50-6.20 MIL/uL Hemoglobin 12.6 L 14.0-18.0 g/dL Hematocrit 38.1 L 42-54 % Mean Corpuscular Volume 93.6 79-99 fL Mean Corpuscular Hemoglobin 31.0 27.0-33.0 pg Mean Corpuscular Hemoglobin Concent 33.1 32.0-36.0 g/dL Red Cell Distribution Width 13.6 11.0-15.5 % Platelet Count 62 L 130-400 K/uL Mean Platelet Volume 13.6 H 7.5-10.5 fL Immature Granulocyte % (Auto) 0.2 0-1 % Neutrophils (%) (Auto) 69.4 40.0-77.0 % Lymphocytes (%) (Auto) 19.7 L 21.0-51.0 % Monocytes (%) (Auto) 9.3 3.0-13.0 % Eosinophils (%) (Auto) 1.2 0.0-8.0 % Basophils (%) (Auto) 0.2 0.0-5.0 % Neutrophils # (Auto) 3.3 1.8-7.7 K/uL Lymphocytes # (Auto) 1.0 1.0-4.8 K/uL Monocytes # (Auto) 0.5 0.1-1.0 K/uL Eosinophils # (Auto) 0.06 0.00-0.70 K/uL Basophils # (Auto) 0.01 0.00-0.20 K/uL Absolute Immature Granulocyte (auto 0.01 0-1 K/uL Nucleated Red Blood Cells 0.0 0.0-0.19 % Platelet Morphology Comment See comments Chemistry Labs: Test 06/01/24 17:40 06/01/24 16:25 06/01/24 11:26 06/01/24 09:17 Range/Units Whole Blood Glucose 88 70-110 MG/DL Troponin I High Sensitivity 8 4-75 ng/L Total Bilirubin 0.5 0.2-1.0 mg/dL Direct Bilirubin 0.2 0.0-0.3 mg/dL Aspartate Amino Transf (AST/SGOT) 28 10-37 U/L Alanine Aminotransferase (ALT/SGPT) 46 12-78 U/L Alkaline Phosphatase 129 50-136 U/L C-Reactive Protein, Quantitative 4.50 H 0.5-3.0 mg/L Total Protein 6.4 6.0-8.3 g/dL Albumin 3.6 3.5-5.0 g/dL Lipase 64 16-77 U/L Procalcitonin < 0.05 L 0.05-0.5 ng/mL Thyroid Stimulating Hormone (TSH) 0.90 0.36-3.74 uIU/mL Sodium Level 143 136-145 mmol/L Potassium Level 3.7 3.5-5.1 mmol/L Chloride Level 106 101-111 mmol/L Carbon Dioxide Level 33 H 21-32 mmol/L Blood Urea Nitrogen 14 7-18 mg/dL Creatinine 0.8 0.5-1.3 mg/dL Glomerular Filtration Rate Calc 105 >90 mL/min Random Glucose 162 H 70-105 mg/dL Hemoglobin A1c 5.5 4.0-6.0 % Estimated Average Glucose (eAG) 111 70-126 mg/dL Total Calcium 9.1 8.5-10.1 mg/dL Magnesium Level 1.80 1.80-2.40 mg/dL Total Creatine Kinase 132 # 21-232 U/L B-Type Natriuretic Peptide 91 0-100 pg/mL Triglycerides Level 65 30-200 mg/dL Cholesterol Level 89 # <200 mg/dL LDL Cholesterol 51 0-99 mg/dL HDL Cholesterol 28 L 29-71 mg/dL Coagulation Labs: Test 06/01/24 09:17 Range/Units Prothrombin Time 12.1 H 9.6-11.6 SEC Prothromb Time International Ratio 1.13 0.85-1.15 Activated Partial Thromboplast Time 28.2 26.3-35.5 SEC Diagnostics / Radiology: Impression and Plan: Chest pain Hypertension Hyperlipidemia Diabetes mellitus type 2 CT in 2017 Remote coronary stent in [place] CAD status post C on 08/10/2023 with PTCA and stent to the proximal LAD with a (BSC Synergy 3.0 x 16mm [place]) Atrial flutter status post DC cardioversion per patient, with possible cardiac ablation Diastolic heart failure 2D echo on 08/08/2023 with an EF of 60-65%, stage I diastolic dysfunction, and mild MR CVA in 2004 Homeless Fall on his left side on 05/24/2024 with an ED visit to [facility] [place], CT of the chest demonstrated a 7mm right lower lobe nodule, no evidence for left rib fracture, cirrhotic liver, and cholelithiasis Chest pain Troponin level of 6 and 6 EKG demonstrated normal sinus rhythm with a heart rate of 57 bpm, no signs of ischemia present Palpation of the left upper abdomen and left chest caused intense discomfort to the patient Abdominal ultrasound demonstrated cholelithiasis -Echocardiogram is pending to evaluate LV function CAD status post C on 08/10/2023 with PTCA and stent to the proximal LAD with a (BSC Synergy 3.0 x 16mm [place]) -Initiate Aspirin 81 mg daily, atorvastatin 40 mg daily, clopidogrel 75 mg daily, and metoprolol succinate 25 mg daily hold for hr less than 55bpm JAKOB YOU DISTRICT AGENT Jun 01, 2024 18:31
[2024-06-01] MEDS ORDERED: CLOP75TA32 PO (19:33)
[2024-06-01] MEDS ORDERED: SITA1TAB2 PO (19:33)
[2024-06-01] MEDS ORDERED: SERT-440 PO (19:33)
[2024-06-01] MEDS ORDERED: AZIL40TA PO (19:35)
[2024-06-01 21:31] VITALS: BP 130/66; PULSE 60; RESP 20; TEMP 98
[2024-06-01] MEDS: atorVAStatin 40 MG TABLET PO SCH (21:52)
[2024-06-01] MEDS: acetaMINOPHEN 500 MG TABLET PO PRN (21:53)
--- NOTE | 2024-06-01 22:10 | NUR ---
patient verbalized that he takes sertraline 200mg po qhs daily and janumet 50-500mg at hs and metoprolol succinate 50mg bid. spoke to stacie betancourt sheet rock finisher. asked if these medications may be resumed. stated only sertaline 200mg may be restarted. add humulin r sliding scale 1/2 scale. stated that cardiology will manage metoprolol medication.
[2024-06-01 22:11] LABS: AMPHET/METH SCREEN,URINE NEGATIVE (NEGATIVE); BARBITURATE SCREEN, URINE NEGATIVE (NEGATIVE); BENZODIAZEPINES SCREEN,URINE POSITIVE (NEGATIVE); CANNABINOID SCREEN,URINE NEGATIVE (NEGATIVE); COCAINE SCREEN,URINE NEGATIVE (NEGATIVE); OPIATE SCREEN,URINE NEGATIVE (NEGATIVE); PHENCYCLIDINE SCREEN,URINE NEGATIVE (NEGATIVE)
[2024-06-01] MEDS: SERTraline HCL 50 MG TABLET ONE (22:36)
[2024-06-01] MEDS: SERTraline HCL 50 MG TABLET PO SCH (22:41)
[2024-06-02 00:01] VITALS: BP 146/64; PULSE 57; RESP 18; TEMP 97.9
[2024-06-02 04:31] VITALS: BP 117/72; PULSE 61; RESP 22; TEMP 98.5
[2024-06-02] MEDS: INSULIN humuLIN R 100 UNIT/ML 3ML SQ SCH (07:30)
--- NOTE | 2024-06-02 07:51 | NUR ---
PER BILL CHECKER NURSE-SABIHA, DR BAILEY HAS BEEN NOTIFIED REGARDING CONSULT.
[2024-06-02 07:54] LABS: BASOPHILS # (AUTO) 0.01 K/uL (0.00-0.20); BASOPHILS % (AUTO) 0.2 % (0.0-5.0); EOSINOPHILS # (AUTO) 0.03 K/uL (0.00-0.70); EOSINOPHILS % (AUTO) 0.7 % (0.0-8.0); HEMATOCRIT 36.5 % (42-54); IMMATURE GRANULOCYTE ABSOLUTE 0.01 K/uL (0-1); LYMPHOCYTES # (AUTO) 0.9 K/uL (1.0-4.8); MEAN CORPUSCULAR HEMOGLOBIN 30.9 pg (27.0-33.0); MEAN CORPUSCULAR HGB CONC 33.7 g/dL (32.0-36.0); MEAN CORPUSCULAR VOLUME 91.7 fL (79-99); MONOCYTES # (AUTO) 0.3 K/uL (0.1-1.0); MONOCYTES % (AUTO) 7.8 % (3.0-13.0); NEUTROPHILS % (AUTO) 70.1 % (40.0-77.0); PLATELET COUNT (AUTO) 52 K/uL (130-400); RED BLOOD CELL COUNT(AUTO) 3.98 MIL/uL (4.50-6.20); RED CELL DISTRIBUTION WIDTH 13.3 % (11.0-15.5); WHITE BLOOD COUNT (AUTO) 4.2 K/uL (4.8-10.8)
[2024-06-02 08:18] LABS: CREATININE 0.7 mg/dL (0.5-1.3); POTASSIUM 4.8 mmol/L (3.5-5.1)
--- NOTE | 2024-06-02 08:32 | EKG ---
[facility] Test Date: 2024-06-02 Test Time: 07:16:49 Pat Name: JUNE TAYLOR Department: EDHIP Room: 325 Gender: M Care Attendant: [id number] : 1970 Requested By: NYDIA GONZALEZ Order Number: [id number] Reading MD: Luba Cote Measurements Intervals [place] Rate: 58 P: 37 WA: 156 QRS: 34 QRSD: 109 T: 56 QT: 449 QTc: 442 Interpretive Statements Sinus rhythm Compared to ECG 06/01/2024 09:05:55 No significant changes Electronically Signed On 06-02-2024 17:35:14 ENVIRONMENTAL ADVISOR by Luba Cote Please click the below link to view image of tracing.
[2024-06-02] MEDS ORDERED: cloPIDOgrel 75MG TAB PO SCH (09:00)
[2024-06-02] MEDS ORDERED: metOPROLol sucCINATE 25 MG TAB.SR.24H PO SCH (09:00)
--- NOTE | 2024-06-02 09:07 | PN ---
[facility] PROGRESS NOTE Date of Service: Jun 02, 2024 Time of Service: 08:55 SUBJECTIVE: [ ] This is a 53-year-old male with past coronary artery disease status post stent placement, history of heart failure, hyperlipidemia who presented to the hospital secondary to chest pain. Patient states for the past 2-3 days he has been having midsternal/epigastric chest pain which got worse today in the morning. Pain is located in the midsternal area/epigastric and would radiate towards his upper chest and lower portions of his chest bilaterally. He started noticing the pain in the morning today and pain would happen intermittently and would come and go. He had associated headache with the pain. He denied any nausea, vomiting, diaphoresis, paresthesias. He described the pain as pressure in nature. Patient states around August 01, 2023 he underwent stent placement in [facility] by Dr. Carrizales. Patient is seen and examined in ER holding reviewed chart. D-dimer is negative. Platelets are low [address] Cote 5reached out to Dr. Moore patient is just recently had a stent placement on dual therapy platelets and aspirin. Patient will be follow-up with barge hand's as outpatient. REVIEW OF SYSTEMS CONSTITUTIONAL: Denies fevers, chills, or night sweats. No unintentional weight loss reported. NEUROLOGICAL: Denies headache, amaurosis fugax, motor weakness, sensory deficit, vertigo/spinning sensation, gait abnormalities, or tremors. Positive for headache ENT: No hearing loss, otalgia, otorrhea, rhinitis, rhinorrhea, hoarseness, or sore throat. CARDIOVASCULAR: Positive for chest pain. Denied any dyspnea on exertion, orthopnea, PND, palpitations PULMONARY: Denies any shortness of breath, cough, phlegm/sputum, hemoptysis, pleuritic chest pain. SLEEP: Denies morning headaches, daytime somnolence or napping. Denies difficulty falling asleep, staying asleep, waking from sleep. Denies knowledge of snoring. GASTROINTESTINAL: Denies any type of dysphagia to either liquids or solids. Denies nausea, vomiting, pyrosis, early satiety, abdominal pain, diarrhea, constipation, or changes in stool consistency or caliber. Denies coffee-ground emesis, hematemesis, hematochezia, or melanotic stools. GENITOURINARY: Denies frequency, urgency, nocturia, hematuria or incontinence (Storage/Irritative symptoms.) Low urinary stream, straining to void, urinary intermittency or hesitancy, splitting of the voiding stream, terminal dribbling. ENDOCRINOLOGIC: Denies polyuria, polydipsia, polyphagia or heat/cold intolerances. HEMATOLOGIC: Denies thrombophilia/previous clots, or coagulopathy/bleeding disorders. ONCOLOGIC: Denies personal history of malignancy. DERMATOLOGIC: Denies rashes or pruritus. PSYCHIATRIC: Denies any suicidal or homicidal ideation. Denies hallucinations. PHYSICAL EXAM GENERAL APPEARANCE: The patient is awake, alert, and oriented, in no acute cardiopulmonary distress. NEUROLOGICAL: Cranial nerves II-XII grossly intact. Motor is 5/5 in bilateral upper and lower extremities proximal to distal. No sensory deficits. HEENT: Face is symmetric. Pupils are equal and reactive. Extraocular movements are intact. NECK: Supple. No JVD. No thyromegaly. No submental, submandibular, pre- /postauricular, occipital or supraclavicular lymphadenopathy. CHEST: Normal chest expansion. No Telemetry. LUNGS: Absence of any rales, rhonchi or any wheezing. CARDIOVASCULAR: Regular. S1 and S2 normal. No appreciable rubs, murmurs or gallops. ABDOMEN: Soft, nontender, and nondistended. There is no rebound, voluntary guarding, or rigidity. : Deferred. No King. EXTREMITIES: Non-edematous and not cyanotic. No clubbing. Good capillary refill. SKIN: No skin breakdown. Vital Signs (last 8hr) Date Time Temp Pulse Resp B/P (MAP) Pulse Ox O2 Delivery O2 Flow Rate FiO2 06/02/24 07:38 98.2 62 20 134/66 98 Room Air* 0 21 06/02/24 04:31 98.4 61 22 117/72 99 Room Air 0.0 LABS: Laboratory: Test 06/02/24 07:48 06/02/24 07:28 06/01/24 22:00 06/01/24 11:26 Range/Units Whole Blood Glucose 121 H 70-110 MG/DL White Blood Count 4.2 L 4.8-10.8 K/uL Red Blood Count 3.98 L 4.50-6.20 MIL/uL Hemoglobin 12.3 L 14.0-18.0 g/dL Hematocrit 36.5 L 42-54 % Mean Corpuscular Volume 91.7 79-99 fL Mean Corpuscular Hemoglobin 30.9 27.0-33.0 pg Mean Corpuscular Hemoglobin Concent 33.7 32.0-36.0 g/dL Red Cell Distribution Width 13.3 11.0-15.5 % Platelet Count 52 L 130-400 K/uL Mean Platelet Volume 12.8 H 7.5-10.5 fL Immature Granulocyte % (Auto) 0.2 0-1 % Neutrophils (%) (Auto) 70.1 40.0-77.0 % Lymphocytes (%) (Auto) 21.0 21.0-51.0 % Monocytes (%) (Auto) 7.8 3.0-13.0 % Eosinophils (%) (Auto) 0.7 0.0-8.0 % Basophils (%) (Auto) 0.2 0.0-5.0 % Neutrophils # (Auto) 3.0 1.8-7.7 K/uL Lymphocytes # (Auto) 0.9 L 1.0-4.8 K/uL Monocytes # (Auto) 0.3 0.1-1.0 K/uL Eosinophils # (Auto) 0.03 0.00-0.70 K/uL Basophils # (Auto) 0.01 0.00-0.20 K/uL Absolute Immature Granulocyte (auto 0.01 0-1 K/uL Nucleated Red Blood Cells 0.0 0.0-0.19 % Sodium Level 140 136-145 mmol/L Potassium Level 4.8 3.5-5.1 mmol/L Chloride Level 104 101-111 mmol/L Carbon Dioxide Level 33 H 21-32 mmol/L Blood Urea Nitrogen 11 7-18 mg/dL Creatinine 0.7 0.5-1.3 mg/dL Glomerular Filtration Rate Calc 110 >90 mL/min Random Glucose 131 H 70-105 mg/dL Total Calcium 8.9 8.5-10.1 mg/dL Troponin I High Sensitivity 9 4-75 ng/L Total Bilirubin 0.5 0.2-1.0 mg/dL Direct Bilirubin 0.2 0.0-0.3 mg/dL Aspartate Amino Transf (AST/SGOT) 28 10-37 U/L Alanine Aminotransferase (ALT/SGPT) 46 12-78 U/L Alkaline Phosphatase 129 50-136 U/L C-Reactive Protein, Quantitative 4.50 H 0.5-3.0 mg/L Total Protein 6.4 6.0-8.3 g/dL Albumin 3.6 3.5-5.0 g/dL Lipase 64 16-77 U/L Procalcitonin < 0.05 L 0.05-0.5 ng/mL Thyroid Stimulating Hormone (TSH) 0.90 0.36-3.74 uIU/mL Test 06/01/24 11:06 06/01/24 11:05 06/01/24 09:17 Range/Units Urine Color LIGHT-YELLOW YELLOW Urine Appearance CLEAR CLEAR Urine pH 5.5 5.0-8.0 Urine Specific [place] 1.013 1.001-1.031 Urine Protein NEGATIVE NEGATIVE mg/dL Urine Glucose (UA) NEGATIVE NEGATIVE mg/dL Urine Ketones NEGATIVE NEGATIVE mg/dL Urine Occult Blood LARGE H NEGATIVE Urine Nitrate NEGATIVE NEGATIVE Urine Bilirubin NEGATIVE NEGATIVE mg/dL Urine Urobilinogen 0.2 0.2-1.0 mg/dL Urine Leukocyte Esterase NEGATIVE NEGATIVE Jonnathan/uL Urine RBC 6-10 H 0-1 /HPF Urine WBC 2-5 H 0-1 /HPF Urine Squamous Epithelial Cells RARE 0-2 /HPF Urine Bacteria RARE None Seen /HPF Urine Hyaline Casts 2-5 H 0-1 /LPF /LPF Urine Opiates Screen NEGATIVE NEGATIVE Urine Barbiturates Screen NEGATIVE NEGATIVE Urine Phencyclidine Screen NEGATIVE NEGATIVE Urine Amphetamines Screen NEGATIVE NEGATIVE Urine Benzodiazepines Screen POSITIVE H NEGATIVE Urine Cocaine Screen NEGATIVE NEGATIVE Urine Marijuana (THC) Screen NEGATIVE NEGATIVE Platelet Morphology Comment See comments Prothrombin Time 12.1 H 9.6-11.6 SEC Prothromb Time International Ratio 1.13 0.85-1.15 Activated Partial Thromboplast Time 28.2 26.3-35.5 SEC Hemoglobin A1c 5.5 4.0-6.0 % Estimated Average Glucose (eAG) 111 70-126 mg/dL Magnesium Level 1.80 1.80-2.40 mg/dL Total Creatine Kinase 132 # 21-232 U/L B-Type Natriuretic Peptide 91 0-100 pg/mL Triglycerides Level 65 30-200 mg/dL Cholesterol Level 89 # <200 mg/dL LDL Cholesterol 51 0-99 mg/dL HDL Cholesterol 28 L 29-71 mg/dL Current Medications Medications (Trade) Dose Ordered Sig/Faisal Route PRN Reason Start Time Stop Time Status Last Admin Dose Admin Acetaminophen (TYLenol 500MG TAB) 500 mg Q6H PRN PO MILD PAIN (1-3) 06/01/24 13:30 07/01/24 13:29 06/02/24 05:13 500 MG Aspirin (Aspirin 81mg Chew Tab) 81 mg DAILY PO 06/02/24 09:00 07/02/24 08:59 Atorvastatin Calcium (LIPItor 40MG) 40 mg HS PO 06/01/24 21:00 07/01/24 20:59 06/01/24 21:52 40 MG Clopidogrel Bisulfate (plaVIX 75MG) 75 mg DAILY PO 06/02/24 09:00 07/02/24 08:59 Hydralazine HCl (APRESOLine 20MG INJ) 10 mg Q6H PRN IV ADMINISTER FOR SBP > 180 06/01/24 13:30 07/01/24 13:29 Insulin Human Regular (humuLIN R 100 UNIT/ML 3ML) INSULIN SLIDING SCAL... ACHS SQ 06/02/24 07:30 07/02/24 07:29 Metoprolol Succinate (TopROL XL) 25 mg DAILY PO 06/02/24 09:00 07/02/24 08:59 Morphine Sulfate (morPHINE 2MG SYG) 2 mg Q6H PRN IVP SEVERE PAIN (7-10) 06/01/24 13:30 06/08/24 13:29 06/02/24 06:56 2 MG Nitroglycerin (Nitrostat) 0.4 mg AD PRN SL CHEST PAIN 06/01/24 12:30 07/01/24 12:29 06/02/24 06:56 0.4 MG Quetiapine Fumarate (SEROquel 100 mg TAB) 200 mg HS PO 06/02/24 22:00 06/01/24 22:16 DC Sertraline HCl (ZOloft 50 mg tab) 200 mg DAILY PO 06/01/24 23:00 07/01/24 22:59 06/01/24 22:41 200 MG Sertraline HCl (ZOloft 50 mg tab) 200 mg DAILY PO 06/02/24 23:00 06/01/24 22:38 DC DIAGNOSTICS / RADIOLOGY: [ ] ASSESSMENT: Chest pain ACS rule out POA troponins negative History of CAD status post stent placement History of atrial flutter History of hypertension History of hyperlipidemia Thrombocytopenia Headache PLAN: - patient to be admitted [facility] with telemetry. - reference to chest pain. Cardiac enzymes x3 negative echocardiogram pending results, printing grey cloth tender's following. Continue [id number] mg daily atorvastatin 40 mg daily metoprolol [id number] mg daily hold for heart rate less than 5 - in reference to thrombocytopenia. Hematology on board we will follow his recommendations. Platelets 52we will hold Plavix until further recommendations from printing grey cloth tender's and Dr. Mcdowell outpatient setting Replace electrolytes as needed to keep potassium above 4.0 magnesium above 2.0 Home medications reviewed and reconciled PRN: MEDICATIONS Tylenol 650 mg po every 4 hrs for fever zofran 4 mg IV every 6 hrs for n/v Hydralazine 10 mg IV every 4 hrs systolic pressure > 160 Supportive measures: DVT ppx, GI ppx all questions answered Supervising MD: Dr. Moore c/d ATTESTATION BY PHYSICIAN I have seen and examined the patient. I reviewed the documentation, medical decision making, and treatment plan as noted by the mid-level provider above. I agree with the findings and plan of care. SEAN MOORE MD, ELIZABETH NP Jun 02, 2024 09:07
--- NOTE | 2024-06-02 09:23 | PN ---
[facility] CARDIOLOGY PROGRESS NOTE Cardiology progress note dictated for Sabrina Cote MD Date Patient Seen: Jun 02, 2024 Interval History: The patient presented to the ED with complaints of chest pain x2 days to the left chest and left upper abdominal quadrant with or without palpation. He had a recent fall on 05/24/2024 and visited the [facility] ED where a CT of the chest ruled out left rib fracture. The patient continues with left sided chest and left upper abdominal pain with palpation which he states is the same type of pain he has been feeling. He has a stent placed to the proximal LAD on 08/10/2023. Platelet count decreased from 62 to 52, Plavix was to be resumed this morning, but will be discontinued. Physical Examination: GENERAL: [No acute distress. HEAD: [Normal with no signs of head trauma. EYES: [PERRLA, EOMI, conjunctiva and sclera normal. NECK: [Supple without JVD. There is no tenderness, lymphadenopathy, or masses. No thyromegaly. Normal carotid upstrokes without bruits. LUNGS: [Clear breath sounds bilaterally. No wheezes, or rhonchi. Left chest and left upper abdominal quadrant with pain upon palpation. HEART: [Normal rate and rhythm. Normal S1 and S2 without murmurs, gallop or rub. VASC: Bilateral DP pulses 2+ EXT: [No clubbing, cyanosis or edema. NEURO: [Awake, alert, and oriented x3. No focal neurological deficits noted. Laboratory: Hematology Labs: Test 06/02/24 07:28 06/01/24 09:17 Range/Units White Blood Count 4.2 L 4.8-10.8 K/uL Red Blood Count 3.98 L 4.50-6.20 MIL/uL Hemoglobin 12.3 L 14.0-18.0 g/dL Hematocrit 36.5 L 42-54 % Mean Corpuscular Volume 91.7 79-99 fL Mean Corpuscular Hemoglobin 30.9 27.0-33.0 pg Mean Corpuscular Hemoglobin Concent 33.7 32.0-36.0 g/dL Red Cell Distribution Width 13.3 11.0-15.5 % Platelet Count 52 L 130-400 K/uL Mean Platelet Volume 12.8 H 7.5-10.5 fL Immature Granulocyte % (Auto) 0.2 0-1 % Neutrophils (%) (Auto) 70.1 40.0-77.0 % Lymphocytes (%) (Auto) 21.0 21.0-51.0 % Monocytes (%) (Auto) 7.8 3.0-13.0 % Eosinophils (%) (Auto) 0.7 0.0-8.0 % Basophils (%) (Auto) 0.2 0.0-5.0 % Neutrophils # (Auto) 3.0 1.8-7.7 K/uL Lymphocytes # (Auto) 0.9 L 1.0-4.8 K/uL Monocytes # (Auto) 0.3 0.1-1.0 K/uL Eosinophils # (Auto) 0.03 0.00-0.70 K/uL Basophils # (Auto) 0.01 0.00-0.20 K/uL Absolute Immature Granulocyte (auto 0.01 0-1 K/uL Nucleated Red Blood Cells 0.0 0.0-0.19 % Platelet Morphology Comment See comments Chemistry Labs: Test 06/02/24 07:48 06/02/24 07:28 06/01/24 22:00 06/01/24 11:26 Range/Units Whole Blood Glucose 121 H 70-110 MG/DL Sodium Level 140 136-145 mmol/L Potassium Level 4.8 3.5-5.1 mmol/L Chloride Level 104 101-111 mmol/L Carbon Dioxide Level 33 H 21-32 mmol/L Blood Urea Nitrogen 11 7-18 mg/dL Creatinine 0.7 0.5-1.3 mg/dL Glomerular Filtration Rate Calc 110 >90 mL/min Random Glucose 131 H 70-105 mg/dL Total Calcium 8.9 8.5-10.1 mg/dL Troponin I High Sensitivity 9 4-75 ng/L Total Bilirubin 0.5 0.2-1.0 mg/dL Direct Bilirubin 0.2 0.0-0.3 mg/dL Aspartate Amino Transf (AST/SGOT) 28 10-37 U/L Alanine Aminotransferase (ALT/SGPT) 46 12-78 U/L Alkaline Phosphatase 129 50-136 U/L C-Reactive Protein, Quantitative 4.50 H 0.5-3.0 mg/L Total Protein 6.4 6.0-8.3 g/dL Albumin 3.6 3.5-5.0 g/dL Lipase 64 16-77 U/L Procalcitonin < 0.05 L 0.05-0.5 ng/mL Thyroid Stimulating Hormone (TSH) 0.90 0.36-3.74 uIU/mL Test 06/01/24 09:17 Range/Units Hemoglobin A1c 5.5 4.0-6.0 % Estimated Average Glucose (eAG) 111 70-126 mg/dL Magnesium Level 1.80 1.80-2.40 mg/dL Total Creatine Kinase 132 # 21-232 U/L B-Type Natriuretic Peptide 91 0-100 pg/mL Triglycerides Level 65 30-200 mg/dL Cholesterol Level 89 # <200 mg/dL LDL Cholesterol 51 0-99 mg/dL HDL Cholesterol 28 L 29-71 mg/dL Coagulation Labs: Test 06/01/24 09:17 Range/Units Prothrombin Time 12.1 H 9.6-11.6 SEC Prothromb Time International Ratio 1.13 0.85-1.15 Activated Partial Thromboplast Time 28.2 26.3-35.5 SEC Diagnostics / Radiology: Impression and Plan: Chest pain Thrombocytopenia Hypertension Hyperlipidemia Diabetes mellitus type 2 [facility] in 2017 Remote coronary stent in [place] CAD status post [facility] on 08/10/2023 with PTCA and stent to the proximal LAD with a (BSC Synergy 3.0 x 16mm CLINTON) Atrial flutter status post DC cardioversion per patient, with possible cardiac ablation Diastolic heart failure 2D echo on 08/08/2023 with an EF of 60-65%, stage I diastolic dysfunction, and mild MR CVA in 2004 Homeless Fall on his left side on 05/24/2024 with an ED visit to [facility] [place] the chest demonstrated a 7mm right lower lobe nodule, no evidence for left rib fracture, cirrhotic liver, and cholelithiasis Poor historian Chest pain Troponin level of 6, 6, 8 and 9 Yesterday's EKG and this morning's EKG are without ischemia Palpation of the left chest and left upper abdomen continues to cause intense discomfort to the patient -Lidocaine 4% patch to left chest -Echocardiogram normal LVEF, although signs of ROXANA including mild pulmonary hypertension with RVSP 45 mm hg, stage II diastolic function, RV dilated, moder ate TR CAD status post [facility] on 08/10/2023 with PTCA and stent to the proximal LAD with a (BSC Synergy 3.0 x 16mm [place]) -Initiate Aspirin 81 mg daily, atorvastatin 40 mg daily, and metoprolol succinate 25 mg daily hold for hr less than 55bpm -Due to thrombocytopenia with a platelet count of 52, clopidogrel will be discontinued. CLINTON placed more than 6 months ago -If platelet count drops below 50, discontinue Aspirin I will sign off at this time. Once he arranges insurance, we will plan for sleep study. JAKOB Mansfield MD Jun 02, 2024 09:23 SABRINA COTE MD Jun 02, 2024 15:26
[2024-06-02] MEDS: LIDOCAINE 4% ADH..PATCH TP SCH (09:37)
[2024-06-02] MEDS: ASPIRIN 81MG CHEW TAB PO SCH (09:37)
--- NOTE | 2024-06-02 09:52 | NUR ---
HEMATOLOGY CONSULT: REPAGED DR BAILEY- JAMES TO ADD PATIENT TO [facility]ENSUS.
--- NOTE | 2024-06-02 10:23 | NUR ---
VERBALIZES RELIEF OF CHEST DISCOMFORT WITH LIDOCAINE PATCH
--- NOTE | 2024-06-02 10:25 | NUR ---
NUCLEAR MED INFORMED OF VQ SCAN ORDER
--- NOTE | 2024-06-02 11:47 | HMCSR ---
APPROVED REPORT EXAM: Two-dimensional and M-mode echocardiogram with Doppler and color Doppler. Study Details: Hx: CAD s/p stent placement, HF, HLP, A-Flutter INDICATION ICD: Chest Pain 2D Dimensions RVDd4.7 cmLVEF(%)64.4 (>50%)LVED Vol(simp.)116.0 mL IVSd0.8 (0.7-1.1cm)FS(%)35 %LVES Vol(simp.)42.7 mL LVDd5.1 (3.8-5.6cm)LA (2D)4.7 (1.6-4.0cm)LVEF(%, simp.)63 % PWd1.1 (0.7-1.1cm)Ao Root(2D)3.1 (2.0-3.7cm)LA ESV INDEX (4CH)39.30 mL/m2 IVSs1.2 cmLVOT diam2.4 (1.8-2.4cm)LA ESV INDEX (2CH)34.30 mL/m2 LVDs3.3 (2.5-4.0cm)LA ESV INDEX (BP)39.50 mL/m2 PWs1.6 cm Deformation Strain Apical 422.0 % Apical 219.0 % Apical 321.0 % Global Qssmmy87.0 % M-Mode Dimensions EPSS1.0 cm LA (MM)4.1 (1.6-4.0cm) Ao Root(MM)3.1 (2.0-3.7cm) Aortic Valve AoV VTI0.4 mAo Mean GR6.0 mmHgLVOT VTI0.29 m CARRIE (VMAX)3.1 cm2AVA (VTI) 3.1 cm2 Mitral Valve MV E Yxqg761.3 cm/sDECEL Qpqh760 ms MV A Vmax83.9 cm/sP 1/2 T73 ms E/A ratio1.4MVA (PHT)3.0 cm2 MR Max PG48 mmHg TDI E/E' Ritiia93.9E/E' Yamswqc69.9 Medial E' Peak V6.00 cm/sLateral E' Peak V10.00 cm/s Tricuspid Valve TR Vmax3.4 m/sRAP (EST) 8 abDnEJEA51.0 mmHg TR Peak GR45.0 mmHg Left Ventricle Left ventricular cavity size is normal. There is normal left ventricular wall thickness. LVEF is 60-6 5%. Stage II, diastolic dysfunction. Right Ventricle The right ventricle is moderately dilated. The right ventricular systolic function is normal. Atria The left atrium is mildly dilated. The right atrium is severely dilated. Aortic Valve Aortic valve is trileaflet and opens well. Trace of aortic regurgitation is present. There is no aort ic valvular stenosis. Mitral Valve There is trace of mitral valve regurgitation noted. There is no mitral valve stenosis. Tricuspid Valve The tricuspid valve leaflets appear normal. There is moderate tricuspid valve regurgitation noted. RV SP 45 mm hg. Mild pulmonary hypertension. Pulmonic Valve The pulmonary valve is normal in structure and function. There is no pulmonic valvular regurgitation. Great Vessels The aortic root is normal in size. IVC is normal in size and collapses <50% with inspiration. Pericardium The pericardium appears normal. No pericardial effusion. Other Information Quality : Fair Conclusion Left ventricular cavity size is normal. LVEF is 60-65%. Stage II, diastolic dysfunction. The right ventricle is moderately dilated. The right ventricular systolic function is normal. The left atrium is mildly dilated. The right atrium is severely dilated. There is moderate tricuspid valve regurgitation noted. RVSP 45 mm hg. Mild pulmonary hypertension. The pericardium appears normal. No pericardial effusion.
[2024-06-02 13:15] VITALS: BP 131/70; PULSE 63; RESP 18; TEMP 98.3; O2SAT 95
[2024-06-02] MEDS ORDERED: ASPI-1005 PO (14:12)
--- NOTE | 2024-06-02 14:15 | DS ---
Discharge Summary Hospital Course Summary: -Due to thrombocytopenia with a platelet count of 52, clopidogrel will be discontinued -If platelet count drops below 50, discontinue Aspirin Assessment/Plan: discharged dx Chest pain ACS ruled out POA troponins negative History of CAD status post stent placement discontinue Plavix as per environmental specialist's on monotherapy aspirin only 81 mg daily History of atrial flutter History of hypertension History of hyperlipidemia Thrombocytopenia history of liver cirrhosis we will follow-up with hematology 2- 3 weeks. 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 Cote 1-2 weeks. PROCEDURES: None IMAGING (S) report attached to summary : MICROBIOLOGY: report attached to summary; ACTIVITY: Ad minerva HOME MEDICATIONS remains the same except see below CHANGES ON HOME MEDICATIONS Plavix NEW MEDICATIONS TEACHING: Avoid NSAIDs, fall precautions Emergency instructions: The patient was instructed to present to the nearest Emergency Department or call 911 should their symptoms return or worsen. Home Medications: Active Scripts Metoprolol Succinate (Toprol Xl) 50 Mg Tab.er.24h, 50 MG PO BID, #30 TAB Prov:LAMBRIE I [facility] 05/22/23 Furosemide (Lasix 20Mg Tab) 20 Mg Tablet, 20 MG PO DAILY, #30 TAB Prov:BRIE LAM Herrera [facility] 05/22/23 Reported Medications Azilsartan Medoxomil (Edarbi) 40 Mg Tablet, 1 TAB PO DAILY for 30 Days, #30 TAB 0 Refills 06/01/24 Sertraline HCl (Sertraline HCl) 100 Mg Tablet, 200 MG PO HS, TAB 06/01/24 Clopidogrel Bisulfate (Clopidogrel) 75 Mg Tablet, 1 TAB PO DAILY for 30 Days, #30 TAB 0 Refills 06/01/24 Sitagliptin Phos/Metformin HCl (Janumet 50-500 mg Tablet) 50 Mg-500 Mg Tablet, 1 TAB PO HS for 30 Days, #60 TAB 0 Refills 06/01/24 Atorvastatin Calcium (Atorvastatin Calcium) 80 Mg Tablet, 80 MG PO HS, TAB 05/20/23 Discontinued Reported Medications Lisinopril (Lisinopril) 20 Mg Tablet, 20 MG PO DAILY, TAB 05/20/23 Metformin HCl (Metformin HCl ER) 1,000 Mg Tab.er.24, 1000 MG PO HS 05/20/23 Discontinued Scripts Amoxicillin/Potassium Clav (Amox Tr-K Clv 875-125 mg Tab) 875 Mg-125 Mg Tablet, 1 EACH PO BID for 7 Days, #14 TAB Prov:KWABENA [facility] [facility] [facility] TE[facility]NIC[facility] 11/10/23 Aspirin (ASPIRIN 81MG CHEW TAB) 81 Mg Tab.chew, 81 MG PO Q24H, #30 TAB.CHEW Prov:BRIE LAM I [employer] [facility] TECHNICIAN 05/22/23 ATTESTATION BY PHYSICIAN I have seen and examined the patient. I reviewed the documentation, medical decision making, and treatment plan as noted by the mid-level provider above. I agree with the findings and plan of care. SEAN WARD MD, ELIZABETH NP Jun 02, 2024 14:15
[2024-06-02 15:31] LABS: BASOPHILS # (AUTO) 0.02 K/uL (0.00-0.20); BASOPHILS % (AUTO) 0.2 % (0.0-5.0); EOSINOPHILS # (AUTO) 0.11 K/uL (0.00-0.70); EOSINOPHILS % (AUTO) 1.3 % (0.0-8.0); HEMATOCRIT 42.2 % (42-54); IMMATURE GRANULOCYTE ABSOLUTE 0.02 K/uL (0-1); LYMPHOCYTES # (AUTO) 1.9 K/uL (1.0-4.8); LYMPHOCYTES % (AUTO) 23.3 % (21.0-51.0); MEAN CORPUSCULAR HEMOGLOBIN 31.4 pg (27.0-33.0); MEAN CORPUSCULAR HGB CONC 34.1 g/dL (32.0-36.0); MEAN CORPUSCULAR VOLUME 91.9 fL (79-99); MONOCYTES # (AUTO) 0.6 K/uL (0.1-1.0); MONOCYTES % (AUTO) 7.2 % (3.0-13.0); NEUTROPHILS # (AUTO) 5.5 K/uL (1.8-7.7); NEUTROPHILS % (AUTO) 67.8 % (40.0-77.0); PLATELET COUNT (AUTO) 95 K/uL (130-400); RED BLOOD CELL COUNT(AUTO) 4.59 MIL/uL (4.50-6.20); RED CELL DISTRIBUTION WIDTH 13.4 % (11.0-15.5); WHITE BLOOD COUNT (AUTO) 8.2 K/uL (4.8-10.8)
--- NOTE | 2024-06-02 17:12 | NUR ---
DISCHARGE PATIENT IS AWARE OF FOLLOW UP APPOINTMENTS PATIENT IS AWARE THAT A PRESCRIPTION WAS SENT TO PHARMACY PATIENT WILL BE TAKEN TO [facility] VIA [facility], SUPERVISOR REFINING NOTIFIED ALL QUESTIONS ANSWERED PRIOR TO DISCHARGE
[2024-06-02] MEDS ORDERED: NON-FORMULARY MEDICATION 1 EACH (Sertraline HCl 200 MG) PO SCH (21:00)
[2024-06-02] MEDS ORDERED: atorVAStatin 40 MG TABLET PO SCH (21:00)
[2024-06-02] MEDS ORDERED: NON-FORMULARY MEDICATION 1 EACH (Atorvastatin Calcium 80 MG) PO SCH (21:00)
[2024-06-02] MEDS ORDERED: metOPROLol sucCINATE 50 MG TAB.SR.24H PO SCH (21:00)
[2024-06-02] MEDS ORDERED: queTIAPine fuMARate 100 MG TAB PO SCH (22:00)
[2024-06-02] MEDS ORDERED: SERTraline HCL 50 MG TABLET PO SCH (23:00)
[2024-06-03] MEDS ORDERED: furoSEMIDE 20 MG TABLET PO SCH (09:00)
[2024-06-03] MEDS ORDERED: LoSARTan 50 MG TABLET PO SCH (09:00)
== END 2024-06-02 17:25 | disposition home or self-care (01) | DRG 313 ==
LOC: EDH 09:06 → EDHIP 09:07 → UNDOADMIN 12:40 → EDHIP 12:41 → 3DH 06-02 13:10
PROVIDERS: ADMIT Internal Medicine; ATTEND Internal Medicine
DX: R07.89 Other chest pain (principal); I48.92 Unspecified atrial flutter; Z59.01 Sheltered homelessness; D69.6 Thrombocytopenia, unspecified; E11.9 Type 2 diabetes mellitus without complications; E78.00 Pure hypercholesterolemia, unspecified; I11.0 Hypertensive heart disease with heart failure; K80.20 Calculus of gallbladder without cholecystitis without obstruction; I50.9 Heart failure, unspecified; I25.10 Atherosclerotic heart disease of native coronary artery without angina pectoris; I25.2 Old myocardial infarction; Z79.02 Long term (current) use of antithrombotics/antiplatelets; Z79.899 Other long term (current) drug therapy; Z86.73 Personal history of transient ischemic attack (TIA), and cerebral infarction without residual deficits; Z95.5 Presence of coronary angioplasty implant and graft
CPT/HCPCS: 36415; 70450; 71045; 76705; 80048; 80061; 80076; 80305; 81001; 82550; 82948; 83036; 83690; 83735; 83880; 84145; 84443; 84484; 85025; 85378; 85610; 85730; 86140; 93005; 93306; 93356; 99285; G0378; J2270

== ENCOUNTER 2024-06-20 13:11 | Inpatient (IN) | payer SELFPAY ==
[~2024-06-20] VITALS: Ht 172.7 cm; Wt 82.7 kg
[~2024-06-20 13:11] MED LIST changes: -AMOX1TAB16 PO; +AZIL40TA PO; -LISI20TA24 PO; -METF-527 PO; +SERT-440 PO; +SITA1TAB2 PO
[2024-06-20 13:32] LABS: BASOPHILS # (AUTO) 0.02 K/uL (0.00-0.20); BASOPHILS % (AUTO) 0.4 % (0.0-5.0); EOSINOPHILS # (AUTO) 0.05 K/uL (0.00-0.70); EOSINOPHILS % (AUTO) 0.9 % (0.0-8.0); HEMATOCRIT 40.1 % (42-54); IMMATURE GRANULOCYTE ABSOLUTE 0.01 K/uL (0-1); LYMPHOCYTES # (AUTO) 1.5 K/uL (1.0-4.8); LYMPHOCYTES % (AUTO) 27.1 % (21.0-51.0); MEAN CORPUSCULAR HEMOGLOBIN 30.8 pg (27.0-33.0); MEAN CORPUSCULAR HGB CONC 33.7 g/dL (32.0-36.0); MEAN CORPUSCULAR VOLUME 91.3 fL (79-99); MONOCYTES # (AUTO) 0.4 K/uL (0.1-1.0); MONOCYTES % (AUTO) 6.5 % (3.0-13.0); NEUTROPHILS # (AUTO) 3.6 K/uL (1.8-7.7); NEUTROPHILS % (AUTO) 64.9 % (40.0-77.0); PLATELET COUNT (AUTO) 70 K/uL (130-400); RED BLOOD CELL COUNT(AUTO) 4.39 MIL/uL (4.50-6.20); WHITE BLOOD COUNT (AUTO) 5.6 K/uL (4.8-10.8)
--- NOTE | 2024-06-20 13:39 | EKG ---
[facility] Test Date: 2024-06-20 Test Time: 13:07:23 Pat Name: JUNE TAYLOR Department: ED Room: 232 Gender: Male Lead Athlete: [id number] : 1970 Requested By: KIRAN MORRIS Order Number: [id number] Reading MD: Jese George Measurements Intervals [place] Rate: 62 P: 42 UT: 149 QRS: 50 QRSD: 112 T: 47 QT: 419 QTc: 426 Interpretive Statements Sinus rhythm Incomplete right bundle branch block Compared to ECG 06/02/2024 07:16:49 Incomplete right bundle-branch block now present Electronically Signed On 06-21-2024 18:10:10 MANAGER HAIR by Jese George Please click the below link to view image of tracing.
[2024-06-20 13:44] LABS: INR 1.16 (0.85-1.15); PROTHROMBIN TIME 12.4 SEC (9.6-11.6)
[2024-06-20 13:45] LABS: PARTIAL THROMBOPLASTIN TIME 28.2 SEC (26.3-35.5)
[2024-06-20 13:49] LABS: CREATININE 0.6 mg/dL (0.5-1.3); POTASSIUM 3.8 mmol/L (3.5-5.1)
--- NOTE | 2024-06-20 14:01 | HMCIMG ---
CHEST 1VW REASON: Shortness of breath COMPARISON: 05/24/2024 FINDINGS: Single view of the chest was obtained. Lungs are clear. Heart size is normal. There is no pulmonary vascular congestion. Mediastinum and bony thorax appear unremarkable. IMPRESSION: 1. Normal single view chest x-ray.
[2024-06-20 14:04] LABS: PLATELET MORPHOLOGY COMMENT DECREASED
[2024-06-20 15:00] LABS: AMPHET/METH SCREEN,URINE NEGATIVE (NEGATIVE); BARBITURATE SCREEN, URINE NEGATIVE (NEGATIVE); BENZODIAZEPINES SCREEN,URINE NEGATIVE (NEGATIVE); CANNABINOID SCREEN,URINE NEGATIVE (NEGATIVE); COCAINE SCREEN,URINE NEGATIVE (NEGATIVE); OPIATE SCREEN,URINE NEGATIVE (NEGATIVE); PHENCYCLIDINE SCREEN,URINE NEGATIVE (NEGATIVE)
--- NOTE | 2024-06-20 16:01 | ERN ---
General Chief Complaint: Chest Pain Stated Complaint: CP Time Seen by MD: 13:13 History of Present Illness Initial Comments 53-year-old male came in for chest pain which has been going on for the past few days. Patient otherwise has no concerns. Allergies: Coded Allergies: No Known Allergies (Unverified Allergy, Unknown, 05/19/23) Home Meds Active Scripts Aspirin (ASPIRIN 81MG CHEW TAB) 81 Mg Tab.chew, 81 MG PO DAILY for 30 Days, #30 TAB.CHEW Prov:CHRISTOPHE MARTINES UNIFIED COMMUNICATIONS ARCHITECT 06/02/24 Metoprolol Succinate (Toprol Xl) 50 Mg Tab.er.24h, 50 MG PO BID, #30 TAB Prov:BRIE LAM I [employer]OGRAPHIC PRESS OPERATOR 05/22/23 Furosemide (Lasix 20Mg Tab) 20 Mg Tablet, 20 MG PO DAILY, #30 TAB Prov:BRIE LAM I [facility] 05/22/23 Reported Medications Azilsartan Medoxomil (Edarbi) 40 Mg Tablet, 1 TAB PO DAILY for 30 Days, #30 TAB 0 Refills 06/01/24 Sertraline HCl (Sertraline HCl) 100 Mg Tablet, 200 MG PO HS, TAB 06/01/24 Sitagliptin Phos/Metformin HCl (Janumet 50-500 mg Tablet) 50 Mg-500 Mg Tablet, 1 TAB PO HS for 30 Days, #60 TAB 0 Refills 06/01/24 Atorvastatin Calcium (Atorvastatin Calcium) 80 Mg Tablet, 80 MG PO HS, TAB 05/20/23 Past Medical History Past Medical History: CAD, Diabetes-Type II, High Cholesterol, Hypertension Past Surgical History: Other Surgical History Other: CARDIAC STENTS Family History Family History: Negative Social History Social History: Negative, Lives with family ROS Dictation CONSTITUTIONAL: Negative except for HPI HEAD/FACE: Negative except for HPI EENT: Negative except for HPI RESPIRATORY: Negative except for HPI GASTROINTESTINAL/ABDOMINAL: Negative except for HPI GENITOURINARY: Negative except for HPI MUSCULOSKELETAL: Negative except for HPI INTEGUMENTARY: Negative except for HPI NEUROLOGICAL/PSYCH: Negative except for HPI HEMATOLOGIC/LYMPHATIC: Negative except for HPI All Systems Negative, Except as noted above. 13 point review of systems assessed and all negative except for above. Physical Exam Physical Exam Dictation Vital Signs reviewed General Appearance: Alert, oriented x 3, no acute distress, well developed, nourished. Head and Face: non-traumatic. Eyes: PERRL, pink conjunctivas, eyelid no trauma, anterior chamber with arcus senilis. Ears: Pinnas intact and no signs of trauma or erythema ear canals clear and no discharge TM no erythema Nose: No discharge, no bleeding. Oropharynx: Mouth normal, tongue pink, pharynx clear,no erythema, tonsils no exudates, no abscesses noted, mucous membrane moist Neck: Supple, non-tender, no thyromegaly, no masses, no JVD, no bruits Breast:Deferred Chest:No tenderness, no crepitus, no paradoxical movement, no retractions Lungs:Clear, well-ventilated, symmetric, no rales, no wheezing, no rhonchi, no stridor, good breath sounds bilaterally Heart: Regular rate, regular rhythm, no murmur, no gallops Vascular: no peripheral edema, Abdomen: Soft, positive bowel sounds, nondistended, no guarding, nontender, no rebound, no masses no hepatomegaly, no splenomegaly, no Cabrera's sign, no hernias. Rectal: Deferred Genital: Deferred Neurological: Normal speech, motor function intact, sensory function intact Musculoskeletal: Neck nontender, full range of motion, back nontender, full range of motion, Extremities: nontender, full range of motion Skin: Color pink, dry, no turgor, no rash, no lacerations, no abrasions, no contusions. Lymphatic: Deferred Results Laboratory and Microbiology Lab and Micro Result Laboratory Tests Test 06/20/24 13:23 06/20/24 14:32 White Blood Count 5.6 K/uL (4.8-10.8) Red Blood Count 4.39 MIL/uL (4.50-6.20) L Hemoglobin 13.5 g/dL (14.0-18.0) L Hematocrit 40.1 % (42-54) L Mean Corpuscular Volume 91.3 fL (79-99) Mean Corpuscular Hemoglobin 30.8 pg (27.0-33.0) Mean Corpuscular Hemoglobin Concent 33.7 g/dL (32.0-36.0) Red Cell Distribution Width 13.0 % (11.0-15.5) Platelet Count 70 K/uL (130-400) L Mean Platelet Volume 13.0 fL (7.5-10.5) H Immature Granulocyte % (Auto) 0.2 % (0-1) Neutrophils (%) (Auto) 64.9 % (40.0-77.0) Lymphocytes (%) (Auto) 27.1 % (21.0-51.0) Monocytes (%) (Auto) 6.5 % (3.0-13.0) Eosinophils (%) (Auto) 0.9 % (0.0-8.0) Basophils (%) (Auto) 0.4 % (0.0-5.0) Neutrophils # (Auto) 3.6 K/uL (1.8-7.7) Lymphocytes # (Auto) 1.5 K/uL (1.0-4.8) Monocytes # (Auto) 0.4 K/uL (0.1-1.0) Eosinophils # (Auto) 0.05 K/uL (0.00-0.70) Basophils # (Auto) 0.02 K/uL (0.00-0.20) Absolute Immature Granulocyte (auto 0.01 K/uL (0-1) Nucleated Red Blood Cells 0.0 % (0.0-0.19) Platelet Morphology Comment DECREASED Prothrombin Time 12.4 SEC (9.6-11.6) H Prothromb Time International Ratio 1.16 (0.85-1.15) H Activated Partial Thromboplast Time 28.2 SEC (26.3-35.5) Sodium Level 142 mmol/L (136-145) Potassium Level 3.8 mmol/L (3.5-5.1) Chloride Level 105 mmol/L (101-111) Carbon Dioxide Level 32 mmol/L (21-32) Blood Urea Nitrogen 12 mg/dL (7-18) Creatinine 0.6 mg/dL (0.5-1.3) Glomerular Filtration Rate Calc 115 mL/min (>90) Random Glucose 106 mg/dL (70-105) H Total Calcium 9.0 mg/dL (8.5-10.1) Total Creatine Kinase 135 U/L (21-232) Troponin I High Sensitivity 6 ng/L (4-75) Urine Opiates Screen NEGATIVE (NEGATIVE) Urine Barbiturates Screen NEGATIVE (NEGATIVE) Urine Phencyclidine Screen NEGATIVE (NEGATIVE) Urine Amphetamines Screen NEGATIVE (NEGATIVE) Urine Benzodiazepines Screen NEGATIVE (NEGATIVE) Urine Cocaine Screen NEGATIVE (NEGATIVE) Urine Marijuana (THC) Screen NEGATIVE (NEGATIVE) MDM MDM: Differential diagnosis: Rationale: Tests considered and ordered secondary to shared decision making include: Previous outside records reviewed: Old ER visits. Risk of complication and/or morbidity or mortality of patient management: None Medications-Per medication reconciliation Need for hospitalization: Patient does meet criteria for hospitalization. Need for emergency major/minor surgery: No There are no social concerns with this patient. Prescription drug management Prescriptions will include symptomatic care Patient's prior external medical records from other ER visits were reviewed by me as indicated. Prior testing and results from previous visits were reviewed. Prior tests were taken into account with medical decision making and resource utilization, independent historian/historians were used to obtain complete medical history. I independently interpreted the test that were performed, results were reviewed by me and considered findings on radiology if ordered. Medical management and examination interpretation discussions were had by me with other qualified healthcare professionals as indicated for the patient's care. ED Course Orders Procedure Category Date Status Time 12 Lead Ekg Tracing- EKG 06/20/24 Complete Technical 13:13 Cbc With Differential LAB 06/20/24 Complete 13:13 Basic Metabolic Panel LAB 06/20/24 Complete 13:13 Creatine Kinase, Total LAB 06/20/24 Complete 13:13 Drug Screen Urine LAB 06/20/24 Complete 13:13 Pt And Ptt LAB 06/20/24 Complete 13:13 Troponin I High LAB 06/20/24 Complete Sensitivity 13:13 Chest 1vw RAD 06/20/24 Resulted 13:13 Vital Signs Date Time Temp Pulse Resp B/P (MAP) Pulse Ox O2 Delivery O2 Flow Rate FiO2 06/20/24 13:34 97.5 75 17 138/62 100 Room Air* 0 21 06/20/24 13:13 98.4 70 16 135/75 98 Room Air 0 DX & DISP Disposition: Inpatient Decision to Admit Date: Jun 20, 2024 Decision to Admit Time: 16:00 Departure Impression: Primary Impression: Angina at rest Condition: Stable Referrals: DBE APONTE (PCP) KIRAN MORRIS MD Jun 20, 2024 16:01
[2024-06-20] MEDS ORDERED: ondanSETRON 4MG INJ IV PRN (16:30)
[2024-06-20] MEDS ORDERED: MAG/ALUM/SIMETH 30 ML UDCUP PO PRN (16:30)
[2024-06-20] MEDS ORDERED: LACTULOSE 20 GM/30 ML UDCUP PO PRN (16:30)
[2024-06-20] MEDS ORDERED: hydrALAZine 20MG/ML VIAL IV PRN (16:30)
[2024-06-20] MEDS ORDERED: morPHINE 4 MG SYG IV PRN (16:30)
[2024-06-20] MEDS ORDERED: DiphenhydrAMINE HCL 25 MG CAPSULE PO PRN (16:30)
[2024-06-20] MEDS ORDERED: guaiFENesin-DM 200/20MG 10ML PO PRN (16:30)
--- NOTE | 2024-06-20 16:38 | HP ---
[facility] HISTORY AND PHYSICAL Date of Service: Jun 20, 2024 Time of Service: 16:22 HISTORY OF PRESENT ILLNESS: 53-year-old male with past medical history of type 2 diabetes, hypertension, CAD, [facility] with cardiac stent placement, hyperlipidemia, who presented to [facility] ED earlier today brought by family for concerns of chest pain. Patient reports chest pain began to occur yesterday while at his home associated with dizziness as well some mild shortness of breath and dyspnea exertion. Patient reports he decided to forego coming to the hospital or going to see his PCP, because his symptoms began to improve of the day. Patient states today chest discomfort continued, was associated with nausea and vomiting. Patient denied hematemesis. Patient states he was evaluated approximately two weeks ago by sport psychologist Dr. Cote, however due to no insurance has not had a follow up to this point. Upon arrival to ED he was noted afebrile, blood pressure 135/75, heart rate 70, respirations 16, O2 saturation 98% on room air. Further evaluation lab significant for glucose 106, H&H 13.5 and 40.1, platelet count of 70, PT of 12.4, INR 1.1. CXR with no acute findings. EKG revealing NSR, with incomplete right bundle-branch block. Initial troponin negative. Request then made to admit patient to the hospital for further evaluation and management. As per my discussion with the ED physician, cardiology has been made aware, Dr. Cote is to be on consult. REVIEW OF SYSTEMS CONSTITUTIONAL: Denies fevers, chills, or night sweats. No unintentional weight loss reported. NEUROLOGICAL: Denies headache, amaurosis fugax, motor weakness, sensory deficit, vertigo/spinning sensation, gait abnormalities, or tremors. ENT: No hearing loss, otalgia, otorrhea, rhinitis, rhinorrhea, hoarseness, or sore throat. CARDIOVASCULAR: As mentioned in HPI PULMONARY: Denies any shortness of breath, cough, phlegm/sputum, hemoptysis, pleuritic chest pain. SLEEP: Denies morning headaches, daytime somnolence or napping. Denies dif ficulty falling asleep, staying asleep, waking from sleep. Denies knowledge of snoring. GASTROINTESTINAL: As mentioned in HPI GENITOURINARY: Denies frequency, urgency, nocturia, hematuria or incontinence (Storage/Irritative symptoms.) Low urinary stream, straining to void, urinary intermittency or hesitancy, splitting of the voiding stream, terminal dribbling. ENDOCRINOLOGIC: Denies polyuria, polydipsia, polyphagia or heat/cold intolerances. HEMATOLOGIC: Denies thrombophilia/previous clots, or coagulopathy/bleeding disorders. ONCOLOGIC: Denies personal history of malignancy. DERMATOLOGIC: Denies rashes or pruritus. PSYCHIATRIC: Denies any suicidal or homicidal ideation. Denies hallucinations. PAST MEDICAL HISTORY: As mentioned in HPI PAST SURGICAL HISTORY: [facility] with cardiac stent placement PAST SOCIAL HISTORY: No tobacco no alcohol no substance abuse FAMILY HISTORY: Noncontributory Coded Allergies: No Known Allergies (Unverified Allergy, Unknown, 05/19/23) PHYSICAL EXAM GENERAL APPEARANCE: The patient is awake, alert, and oriented, in no acute cardiopulmonary distress. NEUROLOGICAL: Cranial nerves II-XII grossly intact. Motor is 5/5 in bilateral upper and lower extremities proximal to distal. No sensory deficits. HEENT: Face is symmetric. Pupils are equal and reactive. Extraocular movements are intact. NECK: Supple. No JVD. No thyromegaly. No submental, submandibular, pre- /postauricular, occipital or supraclavicular lymphadenopathy. CHEST: Normal chest expansion. No Telemetry. LUNGS: Absence of any rales, rhonchi or any wheezing. CARDIOVASCULAR: Regular. S1 and S2 normal. No appreciable rubs, murmurs or gallops. ABDOMEN: Soft, nontender, and nondistended. There is no rebound, voluntary guarding, or rigidity. : Deferred. No King. EXTREMITIES: Non-edematous and not cyanotic. No clubbing. Good capillary refill. SKIN: No skin breakdown. Vital Sign (Last 24 Hours) 06/20/24 13:34 Temp 97.5 Pulse 75 Resp 17 B/P (MAP) 138/62 Pulse Ox 100 O2 Delivery Room Air* O2 Flow Rate 0 FiO2 21 LABS: Laboratory: Test 06/20/24 14:32 06/20/24 13:23 Range/Units Urine Opiates Screen NEGATIVE NEGATIVE Urine Barbiturates Screen NEGATIVE NEGATIVE Urine Phencyclidine Screen NEGATIVE NEGATIVE Urine Amphetamines Screen NEGATIVE NEGATIVE Urine Benzodiazepines Screen NEGATIVE NEGATIVE Urine Cocaine Screen NEGATIVE NEGATIVE Urine Marijuana (THC) Screen NEGATIVE NEGATIVE White Blood Count 5.6 4.8-10.8 K/uL Red Blood Count 4.39 L 4.50-6.20 MIL/uL Hemoglobin 13.5 L 14.0-18.0 g/dL Hematocrit 40.1 L 42-54 % Mean Corpuscular Volume 91.3 79-99 fL Mean Corpuscular Hemoglobin 30.8 27.0-33.0 pg Mean Corpuscular Hemoglobin Concent 33.7 32.0-36.0 g/dL Red Cell Distribution Width 13.0 11.0-15.5 % Platelet Count 70 L 130-400 K/uL Mean Platelet Volume 13.0 H 7.5-10.5 fL Immature Granulocyte % (Auto) 0.2 0-1 % Neutrophils (%) (Auto) 64.9 40.0-77.0 % Lymphocytes (%) (Auto) 27.1 21.0-51.0 % Monocytes (%) (Auto) 6.5 3.0-13.0 % Eosinophils (%) (Auto) 0.9 0.0-8.0 % Basophils (%) (Auto) 0.4 0.0-5.0 % Neutrophils # (Auto) 3.6 1.8-7.7 K/uL Lymphocytes # (Auto) 1.5 1.0-4.8 K/uL Monocytes # (Auto) 0.4 0.1-1.0 K/uL Eosinophils # (Auto) 0.05 0.00-0.70 K/uL Basophils # (Auto) 0.02 0.00-0.20 K/uL Absolute Immature Granulocyte (auto 0.01 0-1 K/uL Nucleated Red Blood Cells 0.0 0.0-0.19 % Platelet Morphology Comment DECREASED Prothrombin Time 12.4 H 9.6-11.6 SEC Prothromb Time International Ratio 1.16 H 0.85-1.15 Activated Partial Thromboplast Time 28.2 26.3-35.5 SEC Sodium Level 142 136-145 mmol/L Potassium Level 3.8 3.5-5.1 mmol/L Chloride Level 105 101-111 mmol/L Carbon Dioxide Level 32 21-32 mmol/L Blood Urea Nitrogen 12 7-18 mg/dL Creatinine 0.6 0.5-1.3 mg/dL Glomerular Filtration Rate Calc 115 >90 mL/min Random Glucose 106 H 70-105 mg/dL Total Calcium 9.0 8.5-10.1 mg/dL Total Creatine Kinase 135 21-232 U/L Troponin I High Sensitivity 6 4-75 ng/L DIAGNOSTICS / RADIOLOGY: [ ] ASSESSMENT: CAD, rule out ACS, POA Dyspnea on exertion POA Type 2 diabetes POA Essential hypertension POA Hyperlipidemia POA Thrombocytopenia POA Anemia POA PLAN: Admit patient to telemetry floor under hospitalist team Obtain home medications, reconcile and resume accordingly Trend cardiac enzymes Obtain 2D echo Atorvastatin 40 mg at bedtime SL NTG p.r.n. chest pain Cardiology consult requested, follow up with recommendations Okay to initiate ADA/heart healthy diet SSI coverage. Glucometer checks a.c. and HS. Hypoglycemic precautions per protocol. Check A1c. DVT and GI prophylaxis P.r.n. medications for fever, pain, nausea, constipation, elevated blood pressure Follow-up a.m. labs Further orders per hospital course ADVANCED CARE PLANNING 1. Which of the following were discussed? Hospice Care - / No Therapeutic options - Yes Advance Directives - Yes Other discussions - 2. Discussed with who? The patient 3. Voluntary nature of this service was explained to the patient? Yes 4. Amount of time spent - ___ 20 minutes ____ 5. Reviewed by Physician? (if this service was performed by NPP) Yes JUSTA MCKINNON Jun 20, 2024 16:38
--- NOTE | 2024-06-20 16:55 | NUR ---
CARDIOLOGY CONSULT: PATIENT REPORT GIVEN TO Nigel BUSBY
--- NOTE | 2024-06-20 16:55 | NUR ---
patient report given to nurse jem
[2024-06-20 16:58] LABS: RETICULOCYTE % (AUTO) 2.1 % (0.42-2.23)
[2024-06-20] MEDS ORDERED: DEXTROSE 50%-WATER 50 ML DISP.SYRIN IV PRN (17:00)
[2024-06-20] MEDS ORDERED: GLUCAGON 1MG KIT 1 MG ML IM PRN (17:00)
[2024-06-20 17:18] VITALS: O2SAT 99
--- NOTE | 2024-06-20 17:39 | CONS ---
[facility] CARDIOLOGY CONSULTATION NOTE Date Patient Seen: Jun 20, 2024 Time of Visit: 17:35 Reason for Consultation: [ chest pain] History of Present Illness: [ Pt is a 53-year-old male with past medical history of type 2 diabetes, hypertension, CAD, [facility] with cardiac stent placement, hyperlipidemia, who presented to [facility] [place] [place] ED earlier today brought by family for concerns of chest pain. Patient reports chest pain began to occur yesterday while at his home associated with dizziness as well some mild shortness of breath and dyspnea exertion. Patient states today chest discomfort continued, was associated with nausea and vomiting. Patient denied hematemesis. Patient states he was evaluated approximately two weeks ago by food mixer Dr. Cote, however due to no insurance has not had a follow up to this point. Upon arrival to ED he was noted afebrile, blood pressure 135/75, heart rate 70, respirations 16, O2 saturation 98% on room air. Further evaluation lab significant for glucose 106, H&H 13.5 and 40.1, platelet count of 70, PT of 12.4, INR 1.1. CXR with no acute findings. EKG revealing NSR, with incomplete right bundle-branch block. Initial troponin negative. ] Past Medical History: [ ] Past Surgical History: [ ] Family History: [ ] Social History: [ ] Habits: [Never] smoker. [Denies] alcohol consumption. [Denies] illicit drug use Home Meds: [ ] Current Meds: [ ] Review of Systems: CONST: [No fever, fatigue, or weight changes.] EYES: [No recent vision problems.] ENT: [No congestion, ear pain, or sore throat.] C/V: [+ chest pain. no palpitations, or edema.] RESP: [No cough, congestion, wheezing or shortness of breath.] GI: [No abdominal pain, nausea, vomiting, constipation, or diarrhea.] : [No incontinence or dysuria.] SKIN: [No rash.] NEURO: [No headache, focal numbness or weakness, dizziness, or seizures.] PSYCH: [No depression or anxiety.] HEME: [No abnormal bruising or bleeding.] LYMPH: [No swollen glands.] Physical Examination: GENERAL: [No acute distress.] HEAD: [Normal with no signs of head trauma.] EYES: [PERRLA, EOMI, conjunctiva and sclera normal.] ENT: [Hearing grossly intact, normal oropharynx.] NECK: [Supple without JVD. There is no tenderness, lymphadenopathy, or masses. No thyromegaly. Normal carotid upstrokes without bruits.] LUNGS: [Clear breath sounds bilaterally. There are right basilar rales one third of the way up the chest. No wheezes, or rhonchi.] HEART: [Normal rate and rhythm. Normal S1 and S2 without mumurs, gallop or rub.] VASC: [Peripheral pulses +2 bilaterally.] ABD: [Bowel sounds normal, soft, nontender, no masses, no organomegaly. No audible bruits.] : [Not examined] LYMPH: [No lymphadenopathy noted.] EXT: [No clubbing, cyanosis or edema.] SKIN: [No rashes or lesions noted.] NEURO: [Awake, alert, and oriented x3. No focal sensory or strength deficits noted.] Vital Signs (last 8hr) Date Time Temp Pulse Resp B/P (MAP) Pulse Ox O2 Delivery O2 Flow Rate FiO2 06/20/24 17:18 99 Room Air* 0 21 06/20/24 16:30 71 16 147/75 98 Room Air* 0 21 06/20/24 13:34 97.5 75 17 138/62 100 Room Air* 0 21 06/20/24 13:13 98.4 70 16 135/75 98 Room Air 0 Laboratory: [ ] Hematology Labs: Test 06/20/24 16:49 06/20/24 13:23 Range/Units Reticulocyte Count (auto) 2.63982 0.42-2.23 % Immature Reticulocyte Fraction 7.40 H 0.18-0.48 % White Blood Count 5.6 4.8-10.8 K/uL Red Blood Count 4.39 L 4.50-6.20 MIL/uL Hemoglobin 13.5 L 14.0-18.0 g/dL Hematocrit 40.1 L 42-54 % Mean Corpuscular Volume 91.3 79-99 fL Mean Corpuscular Hemoglobin 30.8 27.0-33.0 pg Mean Corpuscular Hemoglobin Concent 33.7 32.0-36.0 g/dL Red Cell Distribution Width 13.0 11.0-15.5 % Platelet Count 70 L 130-400 K/uL Mean Platelet Volume 13.0 H 7.5-10.5 fL Immature Granulocyte % (Auto) 0.2 0-1 % Neutrophils (%) (Auto) 64.9 40.0-77.0 % Lymphocytes (%) (Auto) 27.1 21.0-51.0 % Monocytes (%) (Auto) 6.5 3.0-13.0 % Eosinophils (%) (Auto) 0.9 0.0-8.0 % Basophils (%) (Auto) 0.4 0.0-5.0 % Neutrophils # (Auto) 3.6 1.8-7.7 K/uL Lymphocytes # (Auto) 1.5 1.0-4.8 K/uL Monocytes # (Auto) 0.4 0.1-1.0 K/uL Eosinophils # (Auto) 0.05 0.00-0.70 K/uL Basophils # (Auto) 0.02 0.00-0.20 K/uL Absolute Immature Granulocyte (auto 0.01 0-1 K/uL Nucleated Red Blood Cells 0.0 0.0-0.19 % Platelet Morphology Comment DECREASED Chemistry Labs: Test 06/20/24 16:49 06/20/24 13:23 Range/Units Troponin I High Sensitivity 6 4-75 ng/L Sodium Level 142 136-145 mmol/L Potassium Level 3.8 3.5-5.1 mmol/L Chloride Level 105 101-111 mmol/L Carbon Dioxide Level 32 21-32 mmol/L Blood Urea Nitrogen 12 7-18 mg/dL Creatinine 0.6 0.5-1.3 mg/dL Glomerular Filtration Rate Calc 115 >90 mL/min Random Glucose 106 H 70-105 mg/dL Total Calcium 9.0 8.5-10.1 mg/dL Total Creatine Kinase 135 21-232 U/L Coagulation Labs: Test 06/20/24 13:23 Range/Units Prothrombin Time 12.4 H 9.6-11.6 SEC Prothromb Time International Ratio 1.16 H 0.85-1.15 Activated Partial Thromboplast Time 28.2 26.3-35.5 SEC Diagnostics / Radiology: [Copy/Paste Echos/Imaging Report here] Plan: [ #Chest pain rule out -Trend Troponin -ECG no ST-T changes -CCTA ordered -2d echo ordered -metop 25 mg bid started Lbua Cote MD] LUBA COTE MD Jun 20, 2024 17:39
[2024-06-20 17:47] LABS: HEMOGLOBIN A1C 5.7 % (4.0-6.0)
[2024-06-20 18:43] LABS: % IRON SATURATION 33.6 % (30-44)
[2024-06-20 19:19] VITALS: BP 121/69; PULSE 72; RESP 18; TEMP 98.3
[2024-06-20] MEDS: morPHINE 2 MG SYG IV PRN (19:35)
[2024-06-20] MEDS: NITROGLYCERIN 0.4 MG SL TAB SL PRN (19:35)
[2024-06-20 20:00] VITALS: O2SAT 99
[2024-06-20] MEDS: INSULIN humuLIN R 100 UNIT/ML 3ML SQ SCH (21:00)
[2024-06-20] MEDS: FAMOTIDINE 20MG VIAL IV SCH (21:00)
[2024-06-20] MEDS: metoPROLOL tartRATE 25 MG TAB PO SCH (21:00)
[2024-06-20 22:59] VITALS: BP 141/75; PULSE 81; RESP 18; TEMP 97.7
[2024-06-21] VITALS (8 sets, daily range): BP systolic 116–155; BP diastolic 71–84; PULSE 60–70; RESP 16–18; TEMP 97.7–98.6; O2SAT 97
[2024-06-21 08:29] LABS: CREATININE 0.6 mg/dL (0.5-1.3); POTASSIUM 4.8 mmol/L (3.5-5.1)
[2024-06-21] MEDS ORDERED: ENOXAPARIN SODIUM 40 MG/0.4 ML SYRINGE SQ SCH (09:00)
[2024-06-21] MEDS ORDERED: IOHEXOL 350 MG/ML 100ML INFUS..BTL IV ONE (09:27)
--- NOTE | 2024-06-21 09:27 | PN ---
[facility] CARDIOLOGY PROGRESS NOTE Date Patient Seen: Jun 21, 2024 Time of Visit: 09:27 Interval History: [ No events overnight] Physical Examination: GENERAL: [No acute distress.] HEAD: [Normal with no signs of head trauma.] EYES: [PERRLA, EOMI, conjunctiva and sclera normal.] ENT: [Hearing grossly intact, normal oropharynx.] NECK: [Supple without JVD. There is no tenderness, lymphadenopathy, or masses. No thyromegaly. Normal carotid upstrokes without bruits.] LUNGS: [Clear breath sounds bilaterally. There are right basilar rales one third of the way up the chest. No wheezes, or rhonchi.] HEART: [Normal rate and rhythm. Normal S1 and S2 without mumurs, gallop or rub.] VASC: [Peripheral pulses +2 bilaterally.] ABD: [Bowel sounds normal, soft, nontender, no masses, no organomegaly. No audible bruits.] : [Not examined] LYMPH: [No lymphadenopathy noted.] EXT: [No clubbing, cyanosis or edema.] SKIN: [No rashes or lesions noted.] NEURO: [Awake, alert, and oriented x3. No focal sensory or strength deficits noted.] Laboratory: [ ] Hematology Labs: Test 06/20/24 16:49 06/20/24 13:23 Range/Units Reticulocyte Count (auto) 2.07294 0.42-2.23 % Immature Reticulocyte Fraction 7.40 H 0.18-0.48 % White Blood Count 5.6 4.8-10.8 K/uL Red Blood Count 4.39 L 4.50-6.20 MIL/uL Hemoglobin 13.5 L 14.0-18.0 g/dL Hematocrit 40.1 L 42-54 % Mean Corpuscular Volume 91.3 79-99 fL Mean Corpuscular Hemoglobin 30.8 27.0-33.0 pg Mean Corpuscular Hemoglobin Concent 33.7 32.0-36.0 g/dL Red Cell Distribution Width 13.0 11.0-15.5 % Platelet Count 70 L 130-400 K/uL Mean Platelet Volume 13.0 H 7.5-10.5 fL Immature Granulocyte % (Auto) 0.2 0-1 % Neutrophils (%) (Auto) 64.9 40.0-77.0 % Lymphocytes (%) (Auto) 27.1 21.0-51.0 % Monocytes (%) (Auto) 6.5 3.0-13.0 % Eosinophils (%) (Auto) 0.9 0.0-8.0 % Basophils (%) (Auto) 0.4 0.0-5.0 % Neutrophils # (Auto) 3.6 1.8-7.7 K/uL Lymphocytes # (Auto) 1.5 1.0-4.8 K/uL Monocytes # (Auto) 0.4 0.1-1.0 K/uL Eosinophils # (Auto) 0.05 0.00-0.70 K/uL Basophils # (Auto) 0.02 0.00-0.20 K/uL Absolute Immature Granulocyte (auto 0.01 0-1 K/uL Nucleated Red Blood Cells 0.0 0.0-0.19 % Platelet Morphology Comment DECREASED Chemistry Labs: Test 06/21/24 08:07 06/21/24 05:47 06/20/24 16:49 06/20/24 13:23 Range/Units Sodium Level 145 136-145 mmol/L Potassium Level 4.8 3.5-5.1 mmol/L Chloride Level 110 101-111 mmol/L Carbon Dioxide Level 35 H 21-32 mmol/L Blood Urea Nitrogen 12 7-18 mg/dL Creatinine 0.6 0.5-1.3 mg/dL Glomerular Filtration Rate Calc 115 >90 mL/min Random Glucose 121 H 70-105 mg/dL Total Calcium 8.9 8.5-10.1 mg/dL Magnesium Level 2.00 1.80-2.40 mg/dL Troponin I High Sensitivity 7 4-75 ng/L Triglycerides Level 77 30-200 mg/dL Cholesterol Level 112 # <200 mg/dL LDL Cholesterol 65 0-99 mg/dL HDL Cholesterol 34 29-71 mg/dL Whole Blood Glucose 101 70-110 MG/DL Hemoglobin A1c 5.7 4.0-6.0 % Estimated Average Glucose (eAG) 117 70-126 mg/dL Iron Level 74 65-175 mcg/dL Total Iron Binding Capacity 220 L 250-450 mcg/dL Percent Iron Saturation 33.6 30-44 % Ferritin 509 H 30-400 ng/mL Vitamin B12 Level 481 193-986 pg/mL Total Creatine Kinase 135 21-232 U/L Coagulation Labs: Test 06/20/24 13:23 Range/Units Prothrombin Time 12.4 H 9.6-11.6 SEC Prothromb Time International Ratio 1.16 H 0.85-1.15 Activated Partial Thromboplast Time 28.2 26.3-35.5 SEC Diagnostics / Radiology: [Copy/Paste Echos/Imaging Report here] Impression and Plan: [ #Chest pain rule out -Trend Troponin -ECG no ST-T changes -CCTA ordered -2d echo ordered -metop 25 mg bid started Luba Cote MD] LUBA COTE MD Jun 21, 2024 09:27
--- NOTE | 2024-06-21 10:53 | HMCIMG ---
CT CARDIAC ANGIO W/CONT. CCTA REASON: chest pain* COMPARISON: None TECHNIQUE: Images are obtained through the heart in the axial plane before and during bolus IV contrast infusion, 100 cc Omnipaque 350. 2-D and 3-D multiplanar reconstruction images were then performed. The injection had to be repeated once due to motion artifact on the first sequence, total contrast volume was 200 cc. FINDINGS: This dictation is for the noncardiac findings only. Cardiac and coronary artery findings are reported separately. Visualized portions of the lungs are clear. There is normal-appearing pulmonary interstitium. There is no hilar or mediastinal lymphadenopathy. Chest wall structures appear unremarkable. IMPRESSION: 1. Unremarkable noncardiac portions of CT cardiac angiography.
--- NOTE | 2024-06-21 11:42 | PN ---
[facility] PROGRESS NOTE Date of Service: Jun 21, 2024 Time of Service: 11:40 SUBJECTIVE: 06/21/2024 The patient is a 53-year-old male with a medical history of type 2 diabetes, hypertension, coronary artery disease, left heart catheterization with stent placement, and hyperlipidemia. the patient presented to the hospital with chest pain, dizziness, and shortness of breath and was admitted to rule out acute coronary syndrome. Today, the patient denies chest pain, shortness of breath, or dizziness. the cardiology team was consulted, initiated treatment with metoprolol 25 mg BID, and ordered a coronary CT angiography and an echocardiogram, with results pending. Lab results WBC: 5.6 Hgb:13.5 Plt: 70 Sodium: 145 Potassium:4.8 Creatinine:0.6 Vital signs Temp: 98.6F HR:65 bpm BP:126/71 RR: 16 bpm 98% Sat. The patient will remain under observation, and care will proceed per cardiology recommendations. REVIEW OF SYSTEMS CONSTITUTIONAL: Denies fevers, chills, or night sweats. No unintentional weight loss reported. NEUROLOGICAL: Denies headache, amaurosis fugax, motor weakness, sensory deficit, vertigo/spinning sensation, gait abnormalities, or tremors. ENT: No hearing loss, otalgia, otorrhea, rhinitis, rhinorrhea, hoarseness, or sore throat. CARDIOVASCULAR: As mentioned in HPI PULMONARY: Denies any shortness of breath, cough, phlegm/sputum, hemoptysis, pleuritic chest pain. SLEEP: Denies morning headaches, daytime somnolence or napping. Denies difficulty falling asleep, staying asleep, waking from sleep. Denies knowledge of snoring. GASTROINTESTINAL: As mentioned in HPI GENITOURINARY: Denies frequency, urgency, nocturia, hematuria or incontinence (Storage/Irritative symptoms.) Low urinary stream, straining to void, urinary intermittency or hesitancy, splitting of the voiding stream, terminal dribbling. ENDOCRINOLOGIC: Denies polyuria, polydipsia, polyphagia or heat/cold intolerances. HEMATOLOGIC: Denies thrombophilia/previous clots, or coagulopathy/bleeding disorders. ONCOLOGIC: Denies personal history of malignancy. DERMATOLOGIC: Denies rashes or pruritus. PSYCHIATRIC: Denies any suicidal or homicidal ideation. Denies hallucinations. PHYSICAL EXAM GENERAL APPEARANCE: The patient is awake, alert, and oriented, in no acute cardiopulmonary distress. NEUROLOGICAL: Cranial nerves II-XII grossly intact. Motor is 5/5 in bilateral upper and lower extremities proximal to distal. No sensory deficits. HEENT: Face is symmetric. Pupils are equal and reactive. Extraocular movements are intact. NECK: Supple. No JVD. No thyromegaly. No submental, submandibular, pre- /postauricular, occipital or supraclavicular lymphadenopathy. CHEST: Normal chest expansion. No Telemetry. LUNGS: Absence of any rales, rhonchi or any wheezing. CARDIOVASCULAR: Regular. S1 and S2 normal. No appreciable rubs, murmurs or gallops. ABDOMEN: Soft, nontender, and nondistended. There is no rebound, voluntary guarding, or rigidity. : Deferred. No King. EXTREMITIES: Non-edematous and not cyanotic. No clubbing. Good capillary refill. SKIN: No skin breakdown. Vital Signs (last 8hr) Date Time Temp Pulse Resp B/P (MAP) Pulse Ox O2 Delivery O2 Flow Rate FiO2 06/21/24 09:00 97 Room Air* 0 21 06/21/24 07:55 98.6 65 16 126/71 98 Room Air LABS: Laboratory: Test 06/21/24 08:07 06/21/24 05:47 06/20/24 16:49 06/20/24 14:32 Range/Units Sodium Level 145 136-145 mmol/L Potassium Level 4.8 3.5-5.1 mmol/L Chloride Level 110 101-111 mmol/L Carbon Dioxide Level 35 H 21-32 mmol/L Blood Urea Nitrogen 12 7-18 mg/dL Creatinine 0.6 0.5-1.3 mg/dL Glomerular Filtration Rate Calc 115 >90 mL/min Random Glucose 121 H 70-105 mg/dL Total Calcium 8.9 8.5-10.1 mg/dL Magnesium Level 2.00 1.80-2.40 mg/dL Troponin I High Sensitivity 7 4-75 ng/L Triglycerides Level 77 30-200 mg/dL Cholesterol Level 112 # <200 mg/dL LDL Cholesterol 65 0-99 mg/dL HDL Cholesterol 34 29-71 mg/dL Whole Blood Glucose 101 70-110 MG/DL Reticulocyte Count (auto) 2.06835 0.42-2.23 % Immature Reticulocyte Fraction 7.40 H 0.18-0.48 % Hemoglobin A1c 5.7 4.0-6.0 % Estimated Average Glucose (eAG) 117 70-126 mg/dL Iron Level 74 65-175 mcg/dL Total Iron Binding Capacity 220 L 250-450 mcg/dL Percent Iron Saturation 33.6 30-44 % Ferritin 509 H 30-400 ng/mL Vitamin B12 Level 481 193-986 pg/mL Urine Opiates Screen NEGATIVE NEGATIVE Urine Barbiturates Screen NEGATIVE NEGATIVE Urine Phencyclidine Screen NEGATIVE NEGATIVE Urine Amphetamines Screen NEGATIVE NEGATIVE Urine Benzodiazepines Screen NEGATIVE NEGATIVE Urine Cocaine Screen NEGATIVE NEGATIVE Urine Marijuana (THC) Screen NEGATIVE NEGATIVE Test 06/20/24 13:23 Range/Units White Blood Count 5.6 4.8-10.8 K/uL Red Blood Count 4.39 L 4.50-6.20 MIL/uL Hemoglobin 13.5 L 14.0-18.0 g/dL Hematocrit 40.1 L 42-54 % Mean Corpuscular Volume 91.3 79-99 fL Mean Corpuscular Hemoglobin 30.8 27.0-33.0 pg Mean Corpuscular Hemoglobin Concent 33.7 32.0-36.0 g/dL Red Cell Distribution Width 13.0 11.0-15.5 % Platelet Count 70 L 130-400 K/uL Mean Platelet Volume 13.0 H 7.5-10.5 fL Immature Granulocyte % (Auto) 0.2 0-1 % Neutrophils (%) (Auto) 64.9 40.0-77.0 % Lymphocytes (%) (Auto) 27.1 21.0-51.0 % Monocytes (%) (Auto) 6.5 3.0-13.0 % Eosinophils (%) (Auto) 0.9 0.0-8.0 % Basophils (%) (Auto) 0.4 0.0-5.0 % Neutrophils # (Auto) 3.6 1.8-7.7 K/uL Lymphocytes # (Auto) 1.5 1.0-4.8 K/uL Monocytes # (Auto) 0.4 0.1-1.0 K/uL Eosinophils # (Auto) 0.05 0.00-0.70 K/uL Basophils # (Auto) 0.02 0.00-0.20 K/uL Absolute Immature Granulocyte (auto 0.01 0-1 K/uL Nucleated Red Blood Cells 0.0 0.0-0.19 % Platelet Morphology Comment DECREASED Prothrombin Time 12.4 H 9.6-11.6 SEC Prothromb Time International Ratio 1.16 H 0.85-1.15 Activated Partial Thromboplast Time 28.2 26.3-35.5 SEC Total Creatine Kinase 135 21-232 U/L Current Medications Medications (Trade) Dose Ordered Sig/Faisal Route PRN Reason Start Time Stop Time Status Last Admin Dose Admin Acetaminophen (TYLenol 325MG TAB) 650 mg Q6H PRN PO TEMPERATURE GREATER THAN 101.5 06/20/24 16:30 07/20/24 16:29 Al Hydroxide/Mg Hydroxide (MAALox PLUS 30ML) 30 ml Q6H PRN PO INDIGESTION 06/20/24 16:30 07/20/24 16:29 Aspirin (Aspirin 81mg Ec Tab) 81 mg DAILY PO 06/21/24 09:00 07/21/24 08:59 Dextrose (D50w) 50 ml AD PRN IV HYPOGLYCEMIA PROTOCOL 06/20/24 17:00 07/20/24 16:59 Diphenhydramine HCl (BENAdryl CAP) 25 mg Q4H PRN PO MILD ITCHING/RASH 06/20/24 16:30 07/20/24 16:29 Enoxaparin Sodium (Lovenox) 40 mg DAILY SQ 06/21/24 09:00 06/20/24 16:35 DC Famotidine (Pepcid 20mg Vial) 20 mg BID IV 06/20/24 21:00 07/20/24 20:59 06/20/24 21:00 20 MG Glucagon (Glucagon 1mg Kit) 1 mg AD PRN IM HYPOGLYCEMIA PROTOCOL 06/20/24 17:00 07/20/24 16:59 Guaifenesin/ Dextromethorphan (RobiTUSSin DM 200/20MG 10ML) 10 ml Q4H PRN PO COUGH 06/20/24 16:30 07/20/24 16:29 Hydralazine HCl (APRESOLine 20MG INJ) 10 mg Q6H PRN IV For:SBP above 160;DBP above 90 06/20/24 16:30 07/20/24 16:29 Insulin Human Regular (humuLIN R 100 UNIT/ML 3ML) INSULIN SLIDING SCAL... ACHS SQ 06/20/24 21:00 07/20/24 20:59 Lactulose (Constulose 20gm/ 30ml Udcup) 20 gm BID PRN PO CONSTIPATION 06/20/24 16:30 07/20/24 16:29 Metoprolol Tartrate (loprESSOR) 25 mg BID PO 06/20/24 21:00 07/20/24 20:59 06/20/24 21:00 25 MG Morphine Sulfate (morPHINE 2MG SYG) 2 mg Q4H PRN IV MODERATE PAIN (4-6) 06/20/24 16:30 06/27/24 16:29 06/20/24 19:35 2 MG Morphine Sulfate (morPHINE 4MG SYG) 4 mg Q4H PRN IV SEVERE PAIN (7-10) 06/20/24 16:30 06/27/24 16:29 Nitroglycerin (Nitrostat) 0.4 mg PROTOCOL PRN SL CHEST PAIN 06/20/24 16:30 07/20/24 16:29 06/20/24 19:35 0.4 MG Ondansetron HCl (zoFRAN 4MG INJ) 4 mg Q6H PRN IV NAUSEA/VOMITING 06/20/24 16:30 07/20/24 16:29 DIAGNOSTICS / RADIOLOGY: [ ] ASSESSMENT: CAD, rule out ACS, POA Dyspnea on exertion POA Type 2 diabetes POA Essential hypertension POA Hyperlipidemia POA Thrombocytopenia POA Anemia POA PLAN: Patient on telemetry floor under hospitalist team Trend cardiac enzymes - negative Obtain 2D echo Atorvastatin 40 mg at bedtime SL NTG p.r.n. chest pain Cardiology consult requested, follow up with recommendations Continues on ADA/heart healthy diet SSI coverage. Glucometer checks a.c. and HS. Hypoglycemic precautions per protocol. Check A1c. DVT prophylaxis we will hold Lovenox due to low platelet counts and place SCDs instead GI prophylaxis P.r.n. medications for fever, pain, nausea, constipation, elevated blood pressure Follow-up a.m. labs Further orders per hospital course ATTESTATION BY PHYSICIAN I have seen and examined the patient. I reviewed the documentation, medical decision making, and treatment plan as noted by the resident provider above. I agree with the findings and plan of care. Juan Campoverde MD, GERARDO MD Jun 21, 2024 11:42
[2024-06-21] MEDS: ASPIRIN 81 MG EC TAB PO SCH (12:02)
[2024-06-21 12:40] LABS: ALBUMIN 3.4 g/dL (3.5-5.0); BILIRUBIN,DIRECT 0.1 mg/dL (0.0-0.3); BILIRUBIN,TOTAL 0.6 mg/dL (0.2-1.0); TOTAL PROTEIN, SERUM 6.5 g/dL (6.0-8.3)
--- NOTE | 2024-06-21 14:45 | NUR ---
Patient experienced an episode of sternal chest discomfort, however denies denies any shortness of breath. Current vitals T98.2 [id number] BP139/76 02 99%room air. 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 Nurse Daley administered 2 doses of sublingual nitroglycerin 5 minutes apart and administered 2 liters 02 via nasal canula. Patient verbalized relief of chest pain, but did verbalize feeling a headache after intervention. Dr. Hayden Guajardo MD aware, no further orders.
[2024-06-21] MEDS: acetaMINOPHEN 325 MG TAB PO PRN (15:32)
--- NOTE | 2024-06-21 17:14 | HMCSR ---
APPROVED REPORT EXAM: Limited Two-dimensional and M-mode echocardiogram with Doppler and color Doppler. INDICATION ICD: Chest Pain Assess LV Function 2D Dimensions IVSd0.7 (0.7-1.1cm)LVEF(%)73.8 (>50%)LVED Vol(simp.)129.0 mL LVDd4.9 (3.8-5.6cm)FS(%)43 %LVES Vol(simp.)50.4 mL PWd1.1 (0.7-1.1cm)LVEF(%, simp.)61 % IVSs1.3 cmLA ESV INDEX (4CH)33.50 mL/m2 LVDs2.8 (2.5-4.0cm)LA ESV INDEX (2CH)27.40 mL/m2 PWs1.8 cmLA ESV INDEX (BP)31.90 mL/m2 Mitral Valve MV E Vmax85.4 cm/sDECEL Dlqm357 ms MV A Vmax83.4 cm/sP 1/2 T84 ms E/A ratio1.0MVA (PHT)2.6 cm2 TDI E/E' Cueamu06.0E/E' Lateral9.7 Medial E' Peak V6.10 cm/sLateral E' Peak V8.80 cm/s Left Ventricle Left ventricular cavity size is normal. There is normal LV segmental wall motion. There is normal lef t ventricular wall thickness. LVEF is 60-65%. Indeterminate diastolic dysfunction. Right Ventricle The right ventricle is normal size. The right ventricular systolic function is normal. Atria The left atrium size is normal. The right atrium is moderately dilated. Aortic Valve The aortic valve is normal in structure and function. No aortic regurgitation is present. There is no aortic valvular stenosis. Mitral Valve Mitral valve leaflets open well. There is trace of mitral valve regurgitation noted. There is no mitr al valve stenosis. Tricuspid Valve The tricuspid valve leaflets appear normal. Pulmonic Valve The pulmonary valve is normal in structure and function. Great Vessels The aortic root is normal in size. Pericardium No pericardial effusion. Other Information Quality : Fair Conclusion LVEF is 60-65%. There is normal LV segmental wall motion. The right ventricular systolic function is normal. The aortic root is normal in size. No pericardial effusion.
--- NOTE | 2024-06-21 17:29 | NUR ---
D/C PLAN CM spoke to patient regarding d/c planning. Daughter Lisa at bedside. Patient reports he lives in [facility]. Denies having any home services or DME. States he plans on returning home with daughter on day of discharge and she will take patient back to [facility] the following day. No needs verbalized. CM to f/u. Addendum: 06/21/24 at 1730 by SAM DEL ANGEL CM Amended: Links added.
[2024-06-22 03:45] LABS: BASOPHILS # (AUTO) 0.02 K/uL (0.00-0.20); BASOPHILS % (AUTO) 0.4 % (0.0-5.0); EOSINOPHILS # (AUTO) 0.07 K/uL (0.00-0.70); EOSINOPHILS % (AUTO) 1.5 % (0.0-8.0); HEMATOCRIT 40.3 % (42-54); IMMATURE GRANULOCYTE ABSOLUTE 0.01 K/uL (0-1); LYMPHOCYTES # (AUTO) 1.3 K/uL (1.0-4.8); LYMPHOCYTES % (AUTO) 27.9 % (21.0-51.0); MEAN CORPUSCULAR HEMOGLOBIN 30.5 pg (27.0-33.0); MEAN CORPUSCULAR HGB CONC 33.3 g/dL (32.0-36.0); MEAN CORPUSCULAR VOLUME 91.8 fL (79-99); MONOCYTES # (AUTO) 0.4 K/uL (0.1-1.0); MONOCYTES % (AUTO) 8.9 % (3.0-13.0); NEUTROPHILS # (AUTO) 2.8 K/uL (1.8-7.7); NEUTROPHILS % (AUTO) 61.1 % (40.0-77.0); PLATELET COUNT (AUTO) 59 K/uL (130-400); RED BLOOD CELL COUNT(AUTO) 4.39 MIL/uL (4.50-6.20); RED CELL DISTRIBUTION WIDTH 12.9 % (11.0-15.5); WHITE BLOOD COUNT (AUTO) 4.6 K/uL (4.8-10.8)
[2024-06-22 04:00] VITALS: BP 139/75; PULSE 58; RESP 18; TEMP 98.5
[2024-06-22 04:03] LABS: ALBUMIN 3.3 g/dL (3.5-5.0); BILIRUBIN,TOTAL 0.6 mg/dL (0.2-1.0); CREATININE 0.7 mg/dL (0.5-1.3); TOTAL PROTEIN, SERUM 6.4 g/dL (6.0-8.3)
--- NOTE | 2024-06-22 07:47 | CARDIOLOGY ---
RAD REPORT: CORNARY CT ANGIO RADIOLOGY REPORT: CORONARY CT ANGIOGRAPHY DATE: Jun 22, 2024 QUALITY: Excellent CLINICAL HISTORY AND INDICATION: [chest pain ] TECHNIQUE: After obtaining a preliminary sales representative jewelry image, contrast imaging performed on an [employer] [id number] scanner. A dedicated, limited window, coronary imaging protocol was used, with single breath-hold, retrospective ECG gating, and automated arrhythmia rejection. 100 cc of low osmolar contrast agent: Omnipaque 350 was delivered via a 18-gauge IV catheter in the right antecubital fossa, using a power injector and followed by 60 cc of normal saline bolus as a chaser. Collimated images were reformatted at 0.5 mm intervals, and sent to an offline independent workstation for interpretation, using 3D anatomic reconstructions: Curved multiplanar reconstructions, maximum intensity projections, and multiplanar imaging. No metoprolol was administered prior to scanning due to low baseline heart rate. 0.4 mg SL nitroglycerin was given. CORONARY ARTERY DESCRIPTIONS: The coronary arteries arise in normal position. Left main coronary artery: Normal caliber vessel that bifurcates into the LAD and LCx. No stenosis. Left anterior descending coronary artery: Normal caliber vessel and gives rise to diagonal and septal branches. There is a drug eluting stent in the proximal LAD. Left circumflex coronary artery: Normal caliber, nondominant and gives rise to a large OM branch. There is positive remodeling in the mid LCx associated with 30- 40% stenosis. Right coronary artery: Large, dominant vessel giving rise to the PL and PDA branches. No stenosis. CAD-RADs: 2/S, mild non-obstructive CAD. Thoracic Aorta: Normal diameter. Luba Cote MD Cardiovascular Disease [facility] LUBA COTE MD Jun 22, 2024 07:47
--- NOTE | 2024-06-22 07:49 | PN ---
[facility] CARDIOLOGY PROGRESS NOTE Date Patient Seen: Jun 22, 2024 Time of Visit: 07:47 Interval History: [ No events overnight] Physical Examination: GENERAL: [No acute distress.] HEAD: [Normal with no signs of head trauma.] EYES: [PERRLA, EOMI, conjunctiva and sclera normal.] ENT: [Hearing grossly intact, normal oropharynx.] NECK: [Supple without JVD. There is no tenderness, lymphadenopathy, or masses. No thyromegaly. Normal carotid upstrokes without bruits.] LUNGS: [Clear breath sounds bilaterally. There are right basilar rales one third of the way up the chest. No wheezes, or rhonchi.] HEART: [Normal rate and rhythm. Normal S1 and S2 without mumurs, gallop or rub.] VASC: [Peripheral pulses +2 bilaterally.] ABD: [Bowel sounds normal, soft, nontender, no masses, no organomegaly. No audible bruits.] : [Not examined] LYMPH: [No lymphadenopathy noted.] EXT: [No clubbing, cyanosis or edema.] SKIN: [No rashes or lesions noted.] NEURO: [Awake, alert, and oriented x3. No focal sensory or strength deficits noted.] Laboratory: [ ] Hematology Labs: Test 06/22/24 03:22 06/20/24 16:49 06/20/24 13:23 Range/Units White Blood Count 4.6 L 4.8-10.8 K/uL Red Blood Count 4.39 L 4.50-6.20 MIL/uL Hemoglobin 13.4 L 14.0-18.0 g/dL Hematocrit 40.3 L 42-54 % Mean Corpuscular Volume 91.8 79-99 fL Mean Corpuscular Hemoglobin 30.5 27.0-33.0 pg Mean Corpuscular Hemoglobin Concent 33.3 32.0-36.0 g/dL Red Cell Distribution Width 12.9 11.0-15.5 % Platelet Count 59 L 130-400 K/uL Mean Platelet Volume 13.7 H 7.5-10.5 fL Immature Granulocyte % (Auto) 0.2 0-1 % Neutrophils (%) (Auto) 61.1 40.0-77.0 % Lymphocytes (%) (Auto) 27.9 21.0-51.0 % Monocytes (%) (Auto) 8.9 3.0-13.0 % Eosinophils (%) (Auto) 1.5 0.0-8.0 % Basophils (%) (Auto) 0.4 0.0-5.0 % Neutrophils # (Auto) 2.8 1.8-7.7 K/uL Lymphocytes # (Auto) 1.3 1.0-4.8 K/uL Monocytes # (Auto) 0.4 0.1-1.0 K/uL Eosinophils # (Auto) 0.07 0.00-0.70 K/uL Basophils # (Auto) 0.02 0.00-0.20 K/uL Absolute Immature Granulocyte (auto 0.01 0-1 K/uL Nucleated Red Blood Cells 0.0 0.0-0.19 % Reticulocyte Count (auto) 2.71410 0.42-2.23 % Immature Reticulocyte Fraction 7.40 H 0.18-0.48 % Platelet Morphology Comment DECREASED Chemistry Labs: Test 06/22/24 05:59 06/22/24 03:22 06/21/24 08:07 06/20/24 16:49 Range/Units Whole Blood Glucose 125 H 70-110 MG/DL Sodium Level 142 136-145 mmol/L Potassium Level 4.0 3.5-5.1 mmol/L Chloride Level 107 101-111 mmol/L Carbon Dioxide Level 33 H 21-32 mmol/L Blood Urea Nitrogen 13 7-18 mg/dL Creatinine 0.7 0.5-1.3 mg/dL Glomerular Filtration Rate Calc 110 >90 mL/min Random Glucose 108 H 70-105 mg/dL Total Calcium 8.8 8.5-10.1 mg/dL Total Bilirubin 0.6 0.2-1.0 mg/dL Aspartate Amino Transf (AST/SGOT) 43 H 10-37 U/L Alanine Aminotransferase (ALT/SGPT) 92 H 12-78 U/L Alkaline Phosphatase 152 H 50-136 U/L Total Protein 6.4 6.0-8.3 g/dL Albumin 3.3 L 3.5-5.0 g/dL Magnesium Level 2.00 1.80-2.40 mg/dL Direct Bilirubin 0.1 0.0-0.3 mg/dL Troponin I High Sensitivity 7 4-75 ng/L Triglycerides Level 77 30-200 mg/dL Cholesterol Level 112 # <200 mg/dL LDL Cholesterol 65 0-99 mg/dL HDL Cholesterol 34 29-71 mg/dL Hemoglobin A1c 5.7 4.0-6.0 % Estimated Average Glucose (eAG) 117 70-126 mg/dL Iron Level 74 65-175 mcg/dL Total Iron Binding Capacity 220 L 250-450 mcg/dL Percent Iron Saturation 33.6 30-44 % Ferritin 509 H 30-400 ng/mL Vitamin B12 Level 481 193-986 pg/mL Test 06/20/24 13:23 Range/Units Total Creatine Kinase 135 21-232 U/L Coagulation Labs: Test 06/20/24 13:23 Range/Units Prothrombin Time 12.4 H 9.6-11.6 SEC Prothromb Time International Ratio 1.16 H 0.85-1.15 Activated Partial Thromboplast Time 28.2 26.3-35.5 SEC Diagnostics / Radiology: [Copy/Paste Echos/Imaging Report here] Impression and Plan: [ #Chest pain rule out - Troponin negative x4 -ECG no ST-T changes -CCTA patent [place] in LAD, 30-40% mid LCx stenosis, manage medically. Normal thoracic aorta diameter. -2d echo LVEF 60%, no valvular pathology -metop 25 mg bid started I will sign off. He may follow up in clinic 4 weeks after discharge. Luba Cote MD] LUBA COTE MD Jun 22, 2024 07:49
[2024-06-22 08:01] VITALS: O2SAT 97
[2024-06-22 08:14] VITALS: BP 125/73; PULSE 68; RESP 18; TEMP 98.6
--- NOTE | 2024-06-22 12:00 | DS ---
Discharge Summary Hospital Course Summary: Patient is a 53-year-old male with a past medical history of type 2 diabetes, hypertension, coronary artery disease, left heart catheterization with a cardiac stent placement, hyperlipidemia, who presented to the ED with concerns for chest pain on June 20. Patient states the chest pain began to occur the day before while at home and was associated with dizziness and shortness of breaths and dyspnea on exertion. Patient states the chest discomfort continued and was later associated with nausea and vomiting. Patient was unable to follow up with Cardiology Dr. Cote due to insurance issues. Upon arrival to the ED patient was afebrile and normotensive with a heart rate of 70 saturating well on room air. Patient was admitted to rule out acute coronary syndrome. Throughout the course of the hospital stay the patient's troponins were negative and EKG showed sinus rhythm. Patient had a 2D echo with an ejection fraction of 60% and a CTA that showed a patent [place] in the LAD and 30-40% mid left circumflex stenosis which can be medically managed. Today patient was seen and examined and was afebrile and saturating well on room air his white count is unremarkable his hemoglobin and hematocrit are stable. Chemistries are unremarkable. Patient has been advised to follow up with Cardiology outpatient in 4 weeks. And to follow up with his primary care physician in 3-5 days. He has been medically cleared and will be discharged today. Sales Support Associate(s): Cardiology Procedure(s): [place] [address] [address] IMAGING REPORT Signed PATIENT: JUNE TAYLOR MR#: [id number] : 1970 SEX: M AGE: 53 LOCATION: [facility] ORDER 13 STATUS: REG ER REPORT#: [id number] SERVICE [id number] REASON: Shortness of breath ORDERING PHYSICIAN: KIRAN MORRIS MD PROCEDURE: CXR1VW - CHEST 1VW CHEST 1VW REASON: Shortness of breath COMPARISON: 05/24/2024 FINDINGS: Single view of the chest was obtained. Lungs are clear. Heart size is normal. There is no pulmonary vascular congestion. Mediastinum and bony thorax appear unremarkable. IMPRESSION: 1. Normal single view chest x-ray. DICTATED BY: AMY BELTRAN MD DATE: 06/20/24 1358 ELECTRONICALLY SIGNED BY: AMY BELTRAN MD DATE: 06/20/[address] [address] IMAGING REPORT Signed PATIENT: JUNE TAYLOR MR#: [id number] : 1970 SEX: M AGE: 53 LOCATION: 2AH ORDER 1636 STATUS: ADM IN REPORT#: [id number] SERVICE 163 REASON: Chest pain. Assess LV function. ORDERING PHYSICIAN: JUSTA MCKINNON PROCEDURE: ECHO FU LD - ECHO 2-D F/U-LTD APPROVED REPORT EXAM: Limited Two-dimensional and M-mode echocardiogram with Doppler and color Doppler. INDICATION ICD: Chest Pain Assess LV Function 2D Dimensions IVSd 0.7 (0.7-1.1cm) LVEF(%) 73.8 (>50%) LVED Vol(simp.) 129.0 mL LVDd 4.9 (3.8-5.6cm) FS(%) 43 % LVES Vol(simp.) 50.4 mL PWd 1.1 (0.7-1.1cm) LVEF(%, simp.) 61 % IVSs 1.3 cm LA ESV INDEX (4CH) 33.50 mL/m2 LVDs 2.8 (2.5-4.0cm) LA ESV INDEX (2CH) 27.40 mL/m2 PWs 1.8 cm LA ESV INDEX (BP) 31.90 mL/m2 Mitral Valve MV E Vmax 85.4 cm/s DECEL Time 215 ms MV A Vmax 83.4 cm/s P 1/2 T 84 ms E/A ratio 1.0 MVA (PHT) 2.6 cm2 TDI E/E' Medial 14.0 E/E' Lateral 9.7 Medial E' Peak V 6.10 cm/s Lateral E' Peak V 8.80 cm/s Left Ventricle Left ventricular cavity size is normal. There is normal LV segmental wall motion. There is normal left ventricular wall thickness. LVEF is 60-65%. Indeterminate diastolic dysfunction. Right Ventricle The right ventricle is normal size. The right ventricular systolic function is normal. Atria The left atrium size is normal. The right atrium is moderately dilated. Aortic Valve The aortic valve is normal in structure and function. No aortic regurgitation is present. There is no aortic valvular stenosis. Mitral Valve Mitral valve leaflets open well. There is trace of mitral valve regurgitation noted. There is no mitral valve stenosis. Tricuspid Valve The tricuspid valve leaflets appear normal. Pulmonic Valve The pulmonary valve is normal in structure and function. Great Vessels The aortic root is normal in size. Pericardium No pericardial effusion. Other Information Quality : Fair Conclusion LVEF is 60-65%. There is normal LV segmental wall motion. The right ventricular systolic function is normal. The aortic root is normal in size. No pericardial effusion. DICTATED BY: CATHERINE GRANGER MD DATE: 06/21/2416 ELECTRONICALLY SIGNED BY: CATHERINE GRANGER MD DATE: 06/21/24 1714 [place] [address] [address] IMAGING REPORT Signed PATIENT: JUNE TAYLOR MR#: [id number] : 1970 SEX: M AGE: 53 LOCATION: 2AH ORDER 37 STATUS: ADM IN REPORT#: [id number] SERVICE 36 REASON: chest pain* ORDERING PHYSICIAN: SABRINA COTE MD PROCEDURE: CTCAWC - CT CARDIAC ANGIO W/CONT. CCTA CT CARDIAC ANGIO W/CONT. CCTA REASON: chest pain* COMPARISON: None TECHNIQUE: Images are obtained through the heart in the axial plane before and during bolus IV contrast infusion, 100 cc Omnipaque 350. 2-D and 3-D multiplanar reconstruction images were then performed. The injection had to be repeated once due to motion artifact on the first sequence, total contrast volume was 200 cc. FINDINGS: This dictation is for the noncardiac findings only. Cardiac and coronary artery findings are reported separately. Visualized portions of the lungs are clear. There is normal-appearing pulmonary interstitium. There is no hilar or mediastinal lymphadenopathy. Chest wall structures appear unremarkable. IMPRESSION: 1. Unremarkable noncardiac portions of CT cardiac angiography. DICTATED BY: AMY BELTRAN MD DATE: 06/21/24 105 ELECTRONICALLY SIGNED BY: AMY BELTRAN MD DATE: 06/21/24 105 Assessment/Plan: ASSESSMENT: CAD, ruled out ACS, POA Dyspnea on exertion POA Type 2 diabetes POA Essential hypertension POA Hyperlipidemia POA Thrombocytopenia POA Anemia POA Discharge Instructions: Follow up with PCP in 3-5 days. Follow up with Cardiology in 4 weeks. Home Medications: Active Scripts Aspirin (ASPIRIN 81MG CHEW TAB) 81 Mg Tab.chew, 81 MG PO DAILY for 30 Days, #30 TAB.CHEW Prov:CHRISTOPHE MARTINES SEISMOGRAPH OPERATOR 06/02/24 Metoprolol Succinate (Toprol Xl) 50 Mg Tab.er.24h, 50 MG PO BID, #30 TAB Prov:BRIE LAM I DIET KITCHEN COOK 05/22/23 Furosemide (Lasix 20Mg Tab) 20 Mg Tablet, 20 MG PO DAILY, #30 TAB Prov:BRIE LAM I [facility] 05/22/23 Reported Medications Azilsartan Medoxomil (Edarbi) 40 Mg Tablet, 1 TAB PO DAILY for 30 Days, #30 TAB 0 Refills 06/01/24 Sertraline HCl (Sertraline HCl) 100 Mg Tablet, 200 MG PO HS, TAB 06/01/24 Sitagliptin Phos/Metformin HCl (Janumet 50-500 mg Tablet) 50 Mg-500 Mg Tablet, 1 TAB PO HS for 30 Days, #60 TAB 0 Refills 06/01/24 Atorvastatin Calcium (Atorvastatin Calcium) 80 Mg Tablet, 80 MG PO HS, TAB 05/20/23 Continued Medications: Aspirin (Aspirin 81MG Chew Tab) 81 Mg Tab.chew 81 MG PO DAILY for 30 Days, #30 TAB.CHEW Atorvastatin Calcium (Atorvastatin Calcium) 80 Mg Tablet 80 MG PO HS, TAB Azilsartan Medoxomil (Edarbi) 40 Mg Tablet 1 TAB PO DAILY for 30 Days, #30 TAB 0 Refills Furosemide (Lasix 20Mg Tab) 20 Mg Tablet 20 MG PO DAILY, #30 TAB Metoprolol Succinate (Toprol Xl) 50 Mg Tab.er.24h 50 MG PO BID, #30 TAB Sertraline HCl (Sertraline HCl) 100 Mg Tablet 200 MG PO HS, TAB Sitagliptin Phos/Metformin HCl (Janumet 50-500 mg Tablet) 50 Mg-500 Mg Tablet 1 TAB PO HS for 30 Days, #60 TAB 0 Refills Time spent arranging discharge: 1-30 minutes ATTESTATION BY PHYSICIAN I have seen and examined the patient. I reviewed the documentation, medical decision making, and treatment plan as noted by the resident provider above. I agree with the findings and plan of care. Juan Campoverde MD, GERARDO MD Jun 22, 2024 12:00
[2024-06-22 12:28] VITALS: BP 149/79; PULSE 59; RESP 18; TEMP 98.2
== END 2024-06-22 13:10 | disposition home or self-care (01) | DRG 313 ==
LOC: EDH 13:11 → EDHIP 13:12 → 2AH 17:00
PROVIDERS: ADMIT Internal Medicine Sleep Medicine; ATTEND Internal Medicine Sleep Medicine
DX: R07.89 Other chest pain (principal); E11.9 Type 2 diabetes mellitus without complications; I10 Essential (primary) hypertension; I45.10 Unspecified right bundle-branch block; D69.6 Thrombocytopenia, unspecified; D64.9 Anemia, unspecified; I25.10 Atherosclerotic heart disease of native coronary artery without angina pectoris; F19.90 Other psychoactive substance use, unspecified, uncomplicated; E78.00 Pure hypercholesterolemia, unspecified; K59.00 Constipation, unspecified; Z95.5 Presence of coronary angioplasty implant and graft; Z79.899 Other long term (current) drug therapy
CPT/HCPCS: 36415; 71045; 75574; 80048; 80053; 80061; 80076; 80305; 82550; 82607; 82728; 82948; 83036; 83735; 84484; 85025; 85610; 85730; 93005; 93308; 96374; 99285; G0378; J2270; J3490; Q9967; A4600

== ENCOUNTER 2024-08-03 13:42 | Emergency (ER) | payer BC ==
[~2024-08-03] VITALS: Ht 172.7 cm; Wt 86.2 kg
--- NOTE | 2024-08-03 14:10 | ERN ---
ED Note History of Present Illness Stated Complaint: CP, HEADACHE, NAUSEA Chief Complaint: Chest Pain Time Seen by MD: 13:44 Dictation: PATIENT IS A 53-YEAR-OLD MALE WITH A PAST MEDICAL HISTORY HYPERTENSION, HYPERLIPIDEMIA, DIABETES MELLITUS, CAD STATUS POST STENT PLACEMENT, CHF WHO PRESENTED TO THE ER COMPLAINING OF CHEST PAIN TIMES 24 HOURS, STATED THAT THE PAIN, SAME GOALS USUALLY HE HAS BEEN HAVING THESE EPISODES OF CHEST PAIN FOR MONTHS BUT NOW THAT HE HAS HEALTH INSURANCE HE RESOLVED TO COME TO THE ER. STATED THAT THE PAIN LOCALIZED IN THE MIDDLE OF HIS CHEST BRANCH SERVICE LEADER TO THE SIDES. IT WAS ASSOCIATED WITH NAUSEA, DIZZINESS. Allergies: Coded Allergies: No Known Allergies (Unverified Allergy, Unknown, 05/19/23) Home Meds Active Scripts Aspirin (ASPIRIN 81MG CHEW TAB) 81 Mg Tab.chew, 81 MG PO DAILY for 30 Days, #30 TAB.CHEW Prov:CHRISTOPHE MARTINES GRAIN ROASTER 06/02/24 Metoprolol Succinate (Toprol Xl) 50 Mg Tab.er.24h, 50 MG PO BID, #30 TAB Prov:BRIE LAM I WINCH DRIVER 05/22/23 Furosemide (Lasix 20Mg Tab) 20 Mg Tablet, 20 MG PO DAILY, #30 TAB Prov:BRIE LAM I WINCH DRIVER 05/22/23 Reported Medications Azilsartan Medoxomil (Edarbi) 40 Mg Tablet, 1 TAB PO DAILY for 30 Days, #30 TAB 0 Refills 06/01/24 Sertraline HCl (Sertraline HCl) 100 Mg Tablet, 200 MG PO HS, TAB 06/01/24 Sitagliptin Phos/Metformin HCl (Janumet 50-500 mg Tablet) 50 Mg-500 Mg Tablet, 1 TAB PO HS for 30 Days, #60 TAB 0 Refills 06/01/24 Atorvastatin Calcium (Atorvastatin Calcium) 80 Mg Tablet, 80 MG PO HS, TAB 05/20/23 Past Medical History Past Medical History: CAD, Diabetes-Type II, High Cholesterol, Hypertension Surgical History: Other Surgical History Other: CARDIAC STENTS Family History: Negative Social History: Negative, Lives with family Review of System Dictation NEGATIVE EXCEPT PER HPI CONSTITUTIONAL: NEGATIVE FOR FEVER,CHILLS, AND WEIGHT LOSS EYES: NEGATIVE FOR INJURY, PAIN,REDNESS, AND DISCHARGE ENT: NEGATIVE FOR INJURY,PAIN OR SWELLING CARDIOVASCULAR: CHEST PAIN RESPIRATORY: NEGATIVE FOR SHORTNESS OF BREATH, COUGH, AND WHEEZING, ABDOMEN/GI: NEGATIVE FOR ABDOMINAL PAIN, NAUSEA, VOMITING, DIARRHEA, AND CONSTIPATION BACK: NEGATIVE FOR INJURY AND PAIN : NEGATIVE FOR INJURY, BLEEDING AND DISCHARGE MS/EXTREMITY: NEGATIVE FOR INJURY AND DEFORMITY SKIN: NEGATIVE FOR RASH, AND DISCOLORATION NEURO: NEGATIVE FOR HEADACHE, WEAKNESS, NUMBNESS, TINGLING, AND SEIZURE PSYCH: NEGATIVE FOR SUICIDE IDEATION, HOMICIDAL IDEATION, AND HALLUCINATIONS Initial Vital Sign VS Vital Signs Date Time Temp Pulse Resp B/P (MAP) Pulse Ox O2 Delivery O2 Flow Rate FiO2 08/03/24 13:55 97.9 71 16 126/63 99 Room Air 0 08/03/24 14:22 21 Physical Exam Dictation GENERAL: AWAKE, ALERT, NAD HEAD/FACE: NORMOCEPHALIC, ATRAUMATIC EYES: PERRL, EOMI, VISION AT BASELINE ENT: ORAL CAVITY CLEAR, TMS CLEAR, NO SIGNS OF INFECTION NECK: TRACHEA MIDLINE, SUPPLE, NO NUCHAL RIGIDITY CARDIOVASCULAR: RRR, NORMAL S1/S2, NO MRGS, NO JVD RESPIRATORY: CTAB, NO RESPIRATORY DISTRESS, NO RALES OR WHEEZES ABDOMEN: SOFT , NO TENDER SKIN: WARM, DRY, NORMAL TURGOR, NO RASH MS/EXTREMITY: PULSES EQUAL, NO CYANOSIS, NEUROVASCULAR INTACT, FROM NEURO: COAX4, GCS 15, STRENGTH 5/5, CN 2-12 INTACT, NORMAL CEREBELLAR EXAM, NORMAL GAIT, PSYCH: NORMAL BEHAVIOR, MOOD, AND AFFECT NORMAL Results (Laboratory/Radiology) Laboratory/Radiology Laboratory Tests Test 08/03/24 14:16 White Blood Count 5.2 K/uL (4.8-10.8) Red Blood Count 4.22 MIL/uL (4.50-6.20) L Hemoglobin 13.0 g/dL (14.0-18.0) L Hematocrit 38.7 % (42-54) L Mean Corpuscular Volume 91.7 fL (79-99) Mean Corpuscular Hemoglobin 30.8 pg (27.0-33.0) Mean Corpuscular Hemoglobin Concent 33.6 g/dL (32.0-36.0) Red Cell Distribution Width 13.7 % (11.0-15.5) Platelet Count 56 K/uL (130-400) L Mean Platelet Volume 14.2 fL (7.5-10.5) H Nucleated Red Blood Cells 0.0 % (0.0-0.19) Platelet Morphology Comment See comments Prothrombin Time 12.1 SEC (9.6-11.6) H Prothromb Time International Ratio 1.09 (0.85-1.15) Activated Partial Thromboplast Time 29.7 SEC (26.3-35.5) Sodium Level 139 mmol/L (136-145) Potassium Level 4.1 mmol/L (3.5-5.1) Chloride Level 102 mmol/L (101-111) Carbon Dioxide Level 31 mmol/L (21-32) Blood Urea Nitrogen 19 mg/dL (7-18) H Creatinine 0.7 mg/dL (0.5-1.3) Glomerular Filtration Rate Calc 110 mL/min (>90) Random Glucose 92 mg/dL (70-105) Total Calcium 9.3 mg/dL (8.5-10.1) Total Creatine Kinase 59 U/L (21-232) # Troponin I High Sensitivity 4.9 ng/L (4-75) EKG Comment: HEART RATE 63 SINUS RHYTHM, MD 150, QT 409, NORMAL EKG READING. ED Course ED Course Orders Procedure Category Date Status Time Initiate Chest Pain JOHN 08/03/24 In Process Procotol 13:54 12 Lead Ekg Tracing- EKG 08/03/24 Complete Technical 13:54 Cbc Without LAB 08/03/24 Complete Differential 14:20 Basic Metabolic Panel LAB 08/03/24 Complete 14:20 Chest 1vw RAD 08/03/24 Resulted 14:20 Pt And Ptt LAB 08/03/24 Complete 14:20 Iv Insertion CPOE 08/03/24 Transmitted 14:20 Cardiac Panel LAB 08/03/24 Complete 14:16 Vital Signs Date Time Temp Pulse Resp B/P (MAP) Pulse Ox O2 Delivery O2 Flow Rate FiO2 08/03/24 14:22 64 14 115/42 98 Room Air* 0 21 08/03/24 13:55 97.9 71 16 126/63 99 Room Air 0 Medical Decision Making MDM 53-YEAR-OLD MALE WITH A PAST MEDICAL HISTORY OF CAD SUPPOSED STENT, CHF, DIABETES, HYPERTENSION WHO PRESENTED WITH A CHEST PAIN. CHEST PAIN WORKUP INCLUDING LABS, TROPONIN, EKG ORDERED. Chest x-ray within normal limits EKG sinus rhythm, no acute abnormalities reported. Troponin negative CBC BMP within normal limits Patient is already on medication for CAD Recommendation is to follow up with the primary care physician and Cardiology as outpatient. DX & DISP Disposition: Discharge Departure Impression: Primary Impression: Chest pain Additional Impressions: Angina at rest, CAD (coronary artery disease) Condition: Stable Additional Instructions: RETURN TO ER FOR ANY ACUTE OR WORSENING SYMPTOMS. FOLLOW-UP IN 1-2 DAYS WITH PRIMARY PROVIDER FOR RECHECK OF TODAY'S SYMPTOMS. Reason home medications. Referrals: DEB APONTE (PCP) JUDIE MENON MD Aug 03, 2024 14:10
[2024-08-03 14:36] LABS: HEMATOCRIT 38.7 % (42-54); MEAN CORPUSCULAR HEMOGLOBIN 30.8 pg (27.0-33.0); MEAN CORPUSCULAR HGB CONC 33.6 g/dL (32.0-36.0); MEAN CORPUSCULAR VOLUME 91.7 fL (79-99); PLATELET COUNT (AUTO) 56 K/uL (130-400); RED BLOOD CELL COUNT(AUTO) 4.22 MIL/uL (4.50-6.20); RED CELL DISTRIBUTION WIDTH 13.7 % (11.0-15.5); WHITE BLOOD COUNT (AUTO) 5.2 K/uL (4.8-10.8)
--- NOTE | 2024-08-03 14:37 | EKG ---
[facility] Test Date: 2024-08-03 Test Time: 14:02:28 Pat Name: JUNE TAYLOR Department: ED Room: Gender: M Advanced Quality Engineer: [facility] : 1970 Requested By: KIRAN MORRIS Order Number: [id number] Reading MD: Raul Gaytan Measurements Intervals [place] Rate: 63 P: 39 LA: 150 QRS: 50 QRSD: 112 T: 56 QT: 409 QTc: 417 Interpretive Statements Sinus rhythm Compared to ECG 06/20/2024 13:07:23 Incomplete right bundle-branch block no longer present Electronically Signed On 08-04-2024 10:23:10 VENEER CUTTER by Raul Gaytan Please click the below link to view image of tracing.
--- NOTE | 2024-08-03 14:39 | HMCIMG ---
PORTABLE CHEST RADIOGRAPH INDICATION: CHEST PAIN COMPARISON: 06/20/2024 FINDINGS: dyed raw stock blower feeder leads overlie the field of view. Heart size is normal. The pulmonary vascularity and chloé appear normal. No abnormal pulmonary parenchymal opacity or consolidation identified. No significant pleural effusion noted. No pneumothorax detected. IMPRESSION: No radiographic evidence for any acute cardiopulmonary process.
[2024-08-03 14:41] LABS: CREATININE 0.7 mg/dL (0.5-1.3); POTASSIUM 4.1 mmol/L (3.5-5.1)
[2024-08-03 14:55] LABS: INR 1.09 (0.85-1.15); PROTHROMBIN TIME 12.1 SEC (9.6-11.6)
[2024-08-03 14:56] LABS: PARTIAL THROMBOPLASTIN TIME 29.7 SEC (26.3-35.5)
[2024-08-03 15:56] VITALS: BP 116/59; PULSE 59; RESP 14; TEMP 97.9; O2SAT 96
== END 2024-08-03 16:03 | disposition home or self-care (01) ==
LOC: EDH 13:42
DX: I25.118 Atherosclerotic heart disease of native coronary artery with other forms of angina pectoris (principal); E11.9 Type 2 diabetes mellitus without complications; E78.00 Pure hypercholesterolemia, unspecified; I10 Essential (primary) hypertension; Z79.82 Long term (current) use of aspirin; Z79.899 Other long term (current) drug therapy; Z95.5 Presence of coronary angioplasty implant and graft; Z98.890 Other specified postprocedural states
CPT/HCPCS: 36415; 71045; 80048; 82550; 84484; 85027; 85610; 85730; 93005; 99284